=== PATIENT | female | born 1990 | race Caucasian/White ===

== ENCOUNTER → 2016-12-13 | Outpatient (CLI) | payer OTHER ==
--- NOTE | 2016-12-14 17:02 | US ---
EXAM DATE: 12/13/16 PATIENT'S AGE: 26 Patient: HOLLY MEZA Facility: [place], [place] Site Site : 1989 Study: US OB Pelvis [id number] 2:41:04 PM Ordering Physician: abraham villatoro Final Report: INDICATION: Twin 2nd trimester anatomical survey. TECHNIQUE: Ultrasound OB pelvis transabdominal. Real-time salter-scale imaging of the fetus was performed as well as color Doppler and spectral Doppler analysis of the umbilical artery. COMPARISON: 10/05/2016. FINDINGS: Sonographic imaging demonstrates a twin living intrauterine gestation. Fetus A: Fetus A demonstrates a regular cardiac rate of 140 beats per minute. Fetus has a cephalic orientation. The placenta lies anterior without evidence of placenta previa. Amniotic fluid volume appears normal with an CAMILA of 14.0 cm. The composite ultrasound gestational age is calculated at 20 weeks 0 days with an estimated sonographic due date of May 02, 2017. The weight is estimated at 322 grams, the 26th percentile. The following biometric measurements were obtained: Biparietal diameter: 4.7 Head circumference: 17.3 Abdominal circumference: 14.5 Femur length: 3.2 On anatomic survey, there is a normal appearance of the cerebral ventricles, cisterna magna and cerebellum. The nose, lips, and facial profile appear normal. The cervical, thoracic and lumbar spines are well visualized and appear normal. There is a normal four-chamber heart and the left and right ventricular outflow tracts appear normal. diaphragm, stomach, and bladder appear normal. There is mild prominence of the renal collecting systems measuring 4-5 mm. There is a normal three-vessel cord and cord insertion site. The four extremities appear normal. Fetus B: Fetus B demonstrates a regular cardiac rate of 140 beats per minute. Fetus has a cephalic orientation. The placenta lies posterior without evidence of placenta previa. Amniotic fluid volume appears normal with an CAMILA of 16.1 cm. The composite ultrasound gestational age is calculated at 19 weeks 5 days with an estimated sonographic due date of May 04, 2017. The weight is estimated at 311 grams, the 19th percentile. The following biometric measurements were obtained: Biparietal diameter: 4.6 Head circumference: 17.2 Abdominal circumference: 14.2 Femur length: 3.2 On anatomic survey, there is a normal appearance of the cerebral ventricles, cisterna magna and cerebellum. The nose, lips, and facial profile appear normal. The cervical, thoracic and lumbar spines are well visualized and appear normal. There is a normal four-chamber heart and the left and right ventricular outflow tracts appear normal. diaphragm, stomach, kidneys and bladder appear normal. There is a normal three-vessel cord and cord insertion site. The four extremities appear normal. IMPRESSION: 1.Twin viable intrauterine . 2.Mild prominence of the renal collecting systems in Fetus A. Otherwise no intrinsic abnormalities noted on anatomic survey. Dictated by Vikas Stevens MD @ Dec 14 2016 2:43PM (Electronic Signature) Report Signed by Proxy and Original Signed Document filed in the Medical Record. MTDD
== END ==
LOC: MW.US 09:28
PROVIDERS: ATTEND Advanced Practice Midwife
DX: O30.002 Twin pregnancy, unspecified number of placenta and unspecified number of amniotic sacs, second trimester (principal); Z3A.20 20 weeks gestation of pregnancy
CPT/HCPCS: 76805; 76805-26

== ENCOUNTER → 2017-02-09 | Outpatient (CLI) | payer OTHER | LOC: MW.CHOBGYN 08:10 | PROVIDERS: ATTEND Advanced Practice Midwife | DX: Z34.90 Encounter for supervision of normal pregnancy, unspecified, unspecified trimester (principal) | CPT/HCPCS: 36415; 82950; 85027; 86850 ==

== ENCOUNTER → 2017-02-15 | Outpatient (CLI) | payer OTHER | LOC: MW.CHOBGYN 09:45 | PROVIDERS: ATTEND Advanced Practice Midwife | DX: R73.02 Impaired glucose tolerance (oral) (principal) | CPT/HCPCS: 36415; 82951 ==

== ENCOUNTER 2017-03-24 22:09 | Observation (INO) | payer OTHER | END 2017-03-25 01:45 | disposition home or self-care (01) | LOC: MW.OBCHECK 22:09 → MW.OB 22:12 → MW.OBCHECK 23:17 → MW.OB 23:17 | PROVIDERS: ADMIT Obstetrics & Gynecology; ATTEND Advanced Practice Midwife | DX: O36.8130 Decreased fetal movements, third trimester, not applicable or unspecified (principal); Z3A.34 34 weeks gestation of pregnancy | CPT/HCPCS: 59025; G0378 ==

== ENCOUNTER 2017-04-16 09:43 | Inpatient (IN) | payer OTHER ==
--- NOTE | 2017-04-16 08:59 | PCM.LDHP ---
L&D History of Present Illness - General Date of Service: 04/16/17 Admit Problem/Dx: Patient Status Order with Admit Dx/Problem 04/16/17 08:50 Patient Status [ADT] Routine Admission Diagnosis/Problem Admission Diagnosis/Problem - planned Source of Information: Patient History Limitations: Reports: No Limitations - History of Present Illness Improves with: Reports: None Worsens with: Reports: None Associated Symptoms: Reports: N - Related Data Allergies/Adverse Reactions: Allergies Allergy/AdvReac Type Severity Reaction Status Date / Time cefaclor [From Ceclor] Allergy Rash Verified 01/12/15 16:06 Home Medications: Home Meds PNV95/Ferrous Fumarate/FA [ Multivitamins] 1 tab PO DAILY 01/12/15 [ History] Past Medical History HEENT History: Reports: Other (See Below) Other HEENT History: wears contacts/glasses Gastrointestinal History: Reports: GERD Genitourinary History: Reports: 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: Musculoskeletal History: Reports: Other (See Below) Other Musculoskeletal History: scoliosis Psychiatric History: Reports: Anxiety Hematologic History: 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 Other Hematologic History: idiopathic thrombocytopenia as a child Dermatologic History: Reports: Psoriasis - Past Surgical History Head Surgeries/Procedures: Reports: None Female Surgical History: Reports: Section Social & Family History - Tobacco Use Smoking Status *Q: Former Smoker Years of Tobacco use: 5 Used Tobacco, but Quit: No Month Tobacco Last Used: january Second Hand Smoke Exposure: Yes - Alcohol Use Days Per Week of Alcohol Use: 0 Number of Drinks Per Day: 1 Total Drinks Per Week: 0 - Recreational Drug Use Recreational Drug Use: No H&P Review of Systems - Review of Systems: Review Of Systems: See Below General: Reports: No Symptoms HEENT: Reports: No Symptoms Pulmonary: Reports: No Symptoms Cardiovascular: Reports: No Symptoms Gastrointestinal: Reports: No Symptoms Genitourinary: Reports: No Symptoms Musculoskeletal: Reports: No Symptoms Skin: Reports: No Symptoms Psychiatric: Reports: No Symptoms Neurological: Reports: No Symptoms Hematologic/Lymphatic: Reports: No Symptoms Immunologic: Reports: No Symptoms L&D Exam - Exam Exam: See Below - Vital Signs Weight: 92.533 kg - OB Specific Fundal Height In cm: 45 Contraction Intensity: Mild Problem List Initiated/Reviewed/Updated: Yes Orders Last 24hrs: Active Orders 24 hr Category Date Time Status Patient Status [ADT] Routine ADT 04/16/17 08:50 Ordered Non Stress Test [RC] PER UNIT ROUTINE Care 04/16/17 08:50 Ordered Procedure Site Prep Instruct [RC] ASDIRECTED Care 04/16/17 08:50 Ordered Up ad Ethel [RC] ASDIRECTED Care 04/16/17 08:50 Ordered Verify Patient Consent Obtain [RC] ASDIRECTED Care 04/16/17 07:03 Active Verify Patient Consent Obtain [RC] ASDIRECTED Care 04/16/17 08:50 Ordered Vital Signs [RC] PER UNIT ROUTINE Care 04/16/17 08:50 Ordered Nothing per Oral Now Diet [DIET] Diet 04/16/17 Breakfast Active CBC W/O DIFF,HEMOGRAM [HEME] Routine Lab 04/16/17 08:50 Ordered CBC WITH AUTO DIFF [HEME] Routine Lab 04/16/17 10:00 Ordered TYPE AND SCREEN [BBK] Routine Lab 04/16/17 08:50 Ordered TYPE AND SCREEN [BBK] Routine Lab 04/16/17 10:00 Ordered Citric Acid/Sodium Citrate [Bicitra Solution] Med 04/16/17 09:00 Ordered 30 ml PO .ONCE Lactated Ringers [Ringers, Lactated] 1,000 ml Med 04/16/17 09:00 Ordered IV .BOLUS Lactated Ringers [Ringers, Lactated] 1,000 ml Med 04/16/17 07:15 Active IV ASDIRECTED Sodium Chloride 0.9% [Saline Flush] Med 04/16/17 07:03 Active 10 ml FLUSH ASDIRECTED PRN Sodium Chloride 0.9% [Saline Flush] Med 04/16/17 08:50 Ordered 10 ml FLUSH ASDIRECTED PRN Sodium Chloride 0.9% [Saline Flush] Med 04/16/17 07:03 Active 2.5 ml FLUSH ASDIRECTED PRN Sodium Chloride 0.9% [Saline Flush] Med 04/16/17 08:50 Ordered 2.5 ml FLUSH ASDIRECTED PRN ceFAZolin [Ancef] 2 gm Med 04/16/17 08:50 Ordered Premix Bag 1 bag IV ONETIME Medication Administration Instruction [OM.PC] Routine Oth 04/16/17 07:03 Ordered Peripheral IV Insertion Adult [OM.PC] Routine Oth 04/16/17 07:03 Ordered Peripheral IV Insertion Adult [OM.PC] Routine Oth 04/16/17 08:50 Ordered Schedule Procedure [COMM] Per Unit Routine Oth 04/16/17 08:50 Ordered Resuscitation Status Routine Resus Stat 04/16/17 08:50 Ordered Medication Orders Citric Acid/Sodium Citrate (Bicitra Solution) 30 ml PO .ONCE MONA Lactated Ringer's (Ringers, Lactated) 1,000 mls @ 125 mls/hr IV ASDIRECTED MONA Lactated Ringer's (Ringers, Lactated) 1,000 mls @ 500 mls/hr IV .BOLUS MONA Cefazolin Sodium/Dextrose 2 gm (/ Premix) 50 mls @ 100 mls/hr IV ONETIME ONE Stop: 04/16/17 09:19 Sodium Chloride (Saline Flush) 10 ml FLUSH ASDIRECTED PRN PRN Reason: Keep Vein Open Sodium Chloride (Saline Flush) 2.5 ml FLUSH ASDIRECTED PRN PRN Reason: Keep Vein Open Sodium Chloride (Saline Flush) 10 ml FLUSH ASDIRECTED PRN PRN Reason: Keep Vein Open Sodium Chloride (Saline Flush) 2.5 ml FLUSH ASDIRECTED PRN PRN Reason: Keep Vein Open Assessment/Plan Comment:: Intrauterine 38 weeks +1 day it is twin she had a previous section 2 she is admitted for elective repeat section
[~2017-04-16 09:43] MED LIST: Citric Acid/Sodium Citrate Solution 30 ML Cup PO SCH; Lactated Ringers 1,000 ML IV SCH; Sodium Chloride 0.9% 10 ML Syringe FLUSH PRN; Sodium Chloride 0.9% 2.5 ML Syringe FLUSH PRN; ceFAZolin 2 GM in Premix Bag 1 BAG IV ONE
--- NOTE | 2017-04-16 10:04 | PCM.PREANE ---
Preanesthetic Assessment - Anesthesia/Transfusion/Family Hx Anesthesia History: Prior Anesthesia Without Reaction Family History of Anesthesia Reaction: No Transfusion History: No Prior Transfusion(s) - Review of Systems General: No Symptoms Pulmonary: No Symptoms Cardiovascular: No Symptoms Gastrointestinal: No symptoms Neurological: No Symptoms Other: Reports: None - Physical Assessment NPO Status Date: 04/15/17 Height: 1.63 m Weight: 92.533 kg ASA Class: 2 Mental Status: Alert & Oriented x3 Airway Class: Mallampati = 2 Dentition: Reports: Normal Dentition ROM/Head Extension: Full Lungs: Clear to auscultation, Normal respiratory effort Cardiovascular: Regular Rate, Regular Rhythm - Allergies Allergies/Adverse Reactions: Allergies Allergy/AdvReac Type Severity Reaction Status Date / Time cefaclor [From Ceclor] Allergy Rash Verified 01/12/15 16:06 - Blood Blood Available: Yes - Anesthesia Plan Pre-Op Medication Ordered: Antacids - Acknowledgements Anesthesia Type Planned: Spinal Pt an Appropriate Candidate for the Planned Anesthesia: Yes Alternatives and Risks of Anesthesia Discussed w Pt/Guardian: Yes Pt/Guardian Understands and Agrees with Anesthesia Plan: Yes Additional Comments: Elective repeat c/section for twin . 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: Musculoskeletal History: Reports: Other (See Below) Other Musculoskeletal History: scoliosis Psychiatric History: Reports: Anxiety Hematologic History: 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 Other Hematologic History: idiopathic thrombocytopenia as a child Dermatologic History: Reports: Psoriasis - Past Surgical History Head Surgeries/Procedures: Reports: None Female Surgical History: Reports: Section - SUBSTANCE USE Smoking Status *Q: Former Smoker Tobacco Use Within Last Twelve Months: No Second Hand Smoke Exposure: Yes Days Per Week of Alcohol Use: 0 Number of Drinks Per Day: 1 Total Drinks Per Week: 0 Recreational Drug Use History: No - HOME MEDS Home Medications: Home Meds PNV95/Ferrous Fumarate/FA [ Multivitamins] 1 tab PO DAILY 01/12/15 [ History] - CURRENT (IN HOUSE) MEDS Current Meds: Current Medications Citric Acid/Sodium Citrate (Bicitra Solution) 30 ml PO .ONCE MONA Lactated Ringer's (Ringers, Lactated) 1,000 mls @ 125 mls/hr IV ASDIRECTED MONA Lactated Ringer's (Ringers, Lactated) 1,000 mls @ 500 mls/hr IV .BOLUS MONA Sodium Chloride (Saline Flush) 10 ml FLUSH ASDIRECTED PRN PRN Reason: Keep Vein Open Sodium Chloride (Saline Flush) 2.5 ml FLUSH ASDIRECTED PRN PRN Reason: Keep Vein Open Sodium Chloride (Saline Flush) 10 ml FLUSH ASDIRECTED PRN PRN Reason: Keep Vein Open Sodium Chloride (Saline Flush) 2.5 ml FLUSH ASDIRECTED PRN PRN Reason: Keep Vein Open Discontinued Medications Cefazolin Sodium/Dextrose 2 gm (/ Premix) 50 mls @ 100 mls/hr IV ONETIME ONE Stop: 04/16/17 09:19
[2017-04-16] MEDS: Lactated Ringers 1,000 ML IV SCH ×2 (10:25→11:08)
[2017-04-16] MEDS ORDERED: Octyl 2-Cyanoacrylate 1 Tube ONE (10:43)
[2017-04-16] MEDS ORDERED: Morphine PF 10 MG/10 ML SDV ONE (11:58)
[2017-04-16] MEDS ORDERED: Oxytocin/Lactated Ringers 30 UNIT/500 ML BAG ONE (12:03)
[2017-04-16] MEDS ORDERED: Nalbuphine 10 MG/1 ML Vial IVPUSH PRN (12:45)
[2017-04-16] MEDS ORDERED: Acetaminophen/oxyCODONE 325-5 MG Tab PO PRN ×2 (12:45→12:59)
[2017-04-16] MEDS ORDERED: Naloxone 0.4 MG/ML Syringe IVPUSH PRN (12:45)
[2017-04-16] MEDS ORDERED: fentaNYL 100 MCG/2 ML SDV IVPUSH PRN (12:45)
[2017-04-16] MEDS ORDERED: Ketorolac 30 MG/ML SDV ONE (12:56)
[2017-04-16] MEDS ORDERED: Ondansetron 4 MG/2 ML SDV ONE (12:58)
[2017-04-16] MEDS ORDERED: diphenhydrAMINE 50 MG/ML SDV IVPUSH PRN (12:59)
[2017-04-16] MEDS ORDERED: Ibuprofen 800 MG Tab PO PRN (12:59)
[2017-04-16] MEDS ORDERED: Lanolin 100% Cream 7 GM Tube TOP PRN (12:59)
[2017-04-16] MEDS ORDERED: Bisacodyl 10 MG Supp RECTAL PRN (12:59)
[2017-04-16] MEDS ORDERED: Ondansetron 4 MG/2 ML SDV IV PRN (12:59)
[2017-04-16] MEDS ORDERED: Lactated Ringers 1,000 ML IV SCH (13:00)
--- NOTE | 2017-04-16 13:04 | PCM.OPNOTE ---
- General Post-Op/Procedure Note Date of Surgery/Procedure: 04/16/17 Operative Procedure(s): Repeat C/Section Pre Op Diagnosis: Term twin previous C/Section. Post-Op Diagnosis: Same Anesthesia Technique: Combo spinal/epidural, Spinal Primary Surgeon: Gabriel Morin Gui Developer: Kiera Ahumada EBL in mLs: 650 Complications: None Condition: Good
--- NOTE | 2017-04-16 14:07 | PCM.POSTAN ---
POST ANESTHESIA ASSESSMENT - MENTAL STATUS Mental Status: alert, oriented - RESPIRATORY Respiratory Status: respiratory rate WNL, airway patent, O2 saturation stable - CARDIOVASCULAR CV Status: pulse rate WNL, blood pressure stable - GASTROINTESTINAL GI Status: no symptoms - POST OP HYDRATION Hydration Status: adequate & stable
[2017-04-16] MEDS: Ketorolac 30 MG/ML SDV IVPUSH SCH ×2 (14:24→18:41)
[2017-04-16] MEDS ORDERED: Furosemide 40 MG/4 ML VIAL IVPUSH ONE (16:30)
--- NOTE | 2017-04-16 20:06 | OR ---
SURGEON: Gabriel Morin MD DATE OF PROCEDURE: PREOPERATIVE DIAGNOSES: 1. Intrauterine 38 plus 1 weeks twin gestation. 2. Previous section x2. POSTOPERATIVE DIAGNOSES: 1. Intrauterine 38 plus 1 weeks twin gestation. 2. Previous section x2. OPERATION PERFORMED: Repeat low transverse section. PROCESSING SPECIALIST: Kiera Ahumada CNM. PUBLIC WELFARE DIRECTOR: Dr. Moise Nick. ANESTHESIOLOGISTS: Garima Gamez and Dr. Teran. ANESTHESIA: Spinal. ESTIMATED BLOOD LOSS: 650 mL. COMPLICATIONS: None. FINDINGS: Viable female twin . The first one was in the vertex position and the second one is in the breech position delivered without any problem. They cried immediately upon delivery. The score and weight is not available to me at this time. Normal uterus, tubes, and ovaries. INDICATION FOR SURGERY: This patient is 26. She had 2 previous section. She is twin at this time. She is admitted for elective repeat section. PROCEDURE IN DETAIL: The patient was brought to the OR, properly identified, and after adequate level of spinal anesthesia with a Soria catheter in the bladder, the patient prepped and draped in sterile fashion as usual. Low transverse Pfannenstiel skin incision through the old scar was done. The Kwabena's fascia, rectus fascia opened in direction of the incision. The 2 recti muscles were and the peritoneal cavity was entered. The bladder flap was raised in the usual manner pushing the bladder away from the lower uterine segment. Low transverse uterine incision was done and extended manually with hand and the first fetus was in vertex presentation, delivered and cried immediately, handed to the nurse resuscitator and Dr. Nick, and then the second twin was in a breech presentation, delivered in such way, and again it was female and cried immediately too. The placenta delivered spontaneous, complete, and intact, and then repair of the lower uterine segment done with 2-0 Vicryl continuous interlocking in 2 layers. Reperitonealization done with 3-0 Vicryl continuous, and then the peritoneal cavity evacuated completely from all blood and blood clot and closed with 3-0 Vicryl continuous. The rectus fascia was closed with #1 PDS double strand continuous and the Kwabena's fascia with 3-0 Vicryl continuous and skin was closed with 5-0 monofilamentous continuous and Dermabond. The patient tolerated the procedure well, went to recovery room in stable general condition. KIERA ALONSO /[id number]
[2017-04-16] MEDS: Docusate Sodium 100 MG Cap PO SCH (21:30)
[2017-04-17] MEDS: Ketorolac 30 MG/ML SDV IVPUSH SCH ×3 (01:01→13:39)
--- NOTE | 2017-04-17 06:54 | PCM48HPAN ---
Post Anesthesia Note - EVALUATION WITHIN 48HRS OF ANESTHETIC Vital Signs in Normal Range: Yes Patient Participated in Evaluation: Yes Respiratory Function Stable: Yes Airway Patent: Yes Cardiovascular Function Stable: Yes Hydration Status Stable: Yes Pain Control Satisfactory: Yes Nausea and Vomiting Control Satisfactory: Yes Mental Status Recovered: Yes
[2017-04-17] MEDS: Docusate Sodium 100 MG Cap PO SCH ×2 (09:03→21:25)
--- NOTE | 2017-04-17 09:30 | PCM.PNPP ---
- General Info Date of Service: 04/17/17 Functional Status: Reports: pain controlled - Review of Systems General: Reports: No Symptoms HEENT: Reports: no symptoms Pulmonary: Reports: no symptoms Cardiovascular: Reports: No Symptoms Gastrointestinal: Reports: No symptoms Genitourinary: Reports: no symptoms Musculoskeletal: Reports: no symptoms Skin: Reports: no symptoms Neurological: Reports: No Symptoms Psychiatric: Reports: no symptoms - General Info Date of Service: 04/17/17 - Patient Data Vital Signs - most recent: Last Vital Signs Temp 36.4 C 04/17/17 05:00 Pulse 70 04/17/17 07:00 Resp 14 04/17/17 07:00 BP 106/59 L 04/17/17 05:00 Pulse Ox 96 04/17/17 07:00 Weight - most recent: 96.162 kg I&O - last 24 hours: Intake & Output 04/16/17 04/17/17 04/17/17 22:59 06:59 14:59 Intake Total 3920 250 Output Total 630 350 Balance 3290 -100 Lab Results - last 24 hrs: Laboratory Results - last 24 hr 04/16/17 04/16/17 04/17/17 Range/Units 10:24 10:24 05:21 WBC 7.41 (4.0-11.0) K/uL RBC 3.78 L (4.30-5.90) M/uL Hgb 10.6 L 9.0 L (12.0-16.0) g/dL Hct 32.8 L 27.7 L (36.0-46.0) % MCV 86.8 (80.0-98.0) fL MCH 28.0 (27.0-32.0) pg MCHC 32.3 (31.0-37.0) g/dL RDW Std Deviation 45.2 (28.0-62.0) fl RDW Coeff of Liz 14 (11.0-15.0) % Plt Count 182 (150-400) K/uL MPV 11.50 (7.40-12.00) fL Nucleated RBC % 0.0 /100WBC Nucleated RBCs # 0 K/uL Blood Type A POSITIVE Antibody Screen NEGATIVE Med Orders - Current: Current Medications Bisacodyl (Dulcolax) 10 mg RECTAL .ONCE PRN PRN Reason: Constipation Citric Acid/Sodium Citrate (Bicitra Solution) 30 ml PO .ONCE [facility] Last Admin: 04/16/17 11:41 Dose: 30 ml Diphenhydramine HCl (Benadryl) 25 mg IVPUSH Q6H PRN PRN Reason: Itching or Nausea Docusate Sodium (Colace) 100 mg PO BID [facility] Last Admin: 04/17/17 09:03 Dose: 100 mg Emollient Ointment (Lansinoh Hpa) 0 gm TOP ASDIRECTED PRN PRN Reason: Sore Nipples Last Admin: 04/17/17 09:03 Dose: 1 tube Fentanyl (Sublimaze) 50 mcg IVPUSH Q5M PRN PRN Reason: Pain (severe 7-10) Stop: 04/17/17 12:46 Lactated Ringer's (Ringers, Lactated) 1,000 mls @ 125 mls/hr IV ASDIRECTED [facility] Lactated Ringer's (Ringers, Lactated) 1,000 mls @ 500 mls/hr IV .BOLUS [facility] Last Admin: 04/16/17 11:08 Dose: 500 mls/hr Lactated Ringer's (Ringers, Lactated) 1,000 mls @ 125 mls/hr IV ASDIRECTED [facility] Last Admin: 04/16/17 16:30 Dose: 125 mls/hr Ibuprofen (Motrin) 800 mg PO Q8H PRN PRN Reason: mild pain or fever Ketorolac Tromethamine (Toradol) 30 mg IVPUSH Q6H [facility] Stop: 04/17/17 13:01 Last Admin: 04/17/17 07:30 Dose: 30 mg Nalbuphine HCl (Nubain) 5 mg IVPUSH Q3H PRN PRN Reason: Pruritis Stop: 04/17/17 12:46 Last Admin: 04/16/17 14:21 Dose: 5 mg Naloxone HCl (Narcan) 0.1 mg IVPUSH ONETIME PRN PRN Reason: Respiratory Depression Stop: 04/17/17 12:47 Ondansetron HCl (Zofran) 4 mg IV Q4H PRN PRN Reason: Nausea/Vomiting Last Admin: 04/16/17 18:06 Dose: 4 mg Oxycodone/Acetaminophen (Percocet 325-5 Mg) 2 tab PO ONETIME PRN PRN Reason: Pain (moderate 4-6) Oxycodone/Acetaminophen (Percocet 325-5 Mg) 1 tab PO Q4H PRN PRN Reason: Pain (moderate 4-6) Oxycodone/Acetaminophen (Percocet 325-5 Mg) 2 tab PO Q4H PRN PRN Reason: Pain (moderate 4-6) Sodium Chloride (Saline Flush) 10 ml FLUSH ASDIRECTED PRN PRN Reason: Keep Vein Open Sodium Chloride (Saline Flush) 2.5 ml FLUSH ASDIRECTED PRN PRN Reason: Keep Vein Open Sodium Chloride (Saline Flush) 10 ml FLUSH ASDIRECTED PRN PRN Reason: Keep Vein Open Sodium Chloride (Saline Flush) 2.5 ml FLUSH ASDIRECTED PRN PRN Reason: Keep Vein Open Discontinued Medications Furosemide (Lasix) 20 mg IVPUSH NOW ONE Stop: 04/16/17 16:31 Last Admin: 04/16/17 16:38 Dose: 20 mg Cefazolin Sodium/Dextrose 2 gm (/ Premix) 50 mls @ 100 mls/hr IV ONETIME ONE Stop: 04/16/17 09:19 Last Admin: 04/16/17 16:44 Dose: Not Given Oxytocin/Lactated Ringer's (Pitocin In Lr 30 Units/500 Ml) Confirm Administered Dose 30 unit in 500 mls @ as directed .ROUTE .STK-MED ONE Stop: 04/16/17 12:04 Ketorolac Tromethamine (Toradol) Confirm Administered Dose 30 mg .ROUTE .STK- MED ONE Stop: 04/16/17 12:57 Morphine Sulfate (Duramorph Pf) Confirm Administered Dose 10 mg .ROUTE .STK-MED ONE Stop: 04/16/17 11:59 Octyl Cyanoacrylate (Dermabond Advance) Confirm Administered Dose 1 applic .ROUTE .STK-MED ONE Stop: 04/16/17 10:44 Ondansetron HCl (Zofran) Confirm Administered Dose 4 mg .ROUTE .STK-MED ONE Stop: 04/16/17 12:59 - Interaction Disposition, : [place] in Room with Family Interaction: Holding Infant Feeding: Attempted ; Nursed Fair/Poor Support Person: , Mother - Recovery Exam Fundal Tone: Firm Fundal Level: At Umbilicus Fundal Placement: Midline Lochia Amount: Scant Lochia Color: Rubra/Red Perineum Description: Intact, Minimal Bruising/Swelling Episiotomy/Laceration: None Bladder Status: Nonpalpable, Indwelling Catheter in Place Urinary Elimination: Indwelling Catheter - Exam General: alert, oriented HEENT: Pupils equal Neck: supple Lungs: Clear to auscultation, Normal respiratory effort Cardiovascular: Regular Rate, Regular Rhythm Abdomen: bowel sounds present, soft, no tenderness, no distension Extremities: no edema Skin: warm, dry, intact Wound/Incisions: healing well Neurological: no new focal deficit Psy/Mental Status: alert, normal affect, normal mood - Problem List Review Problem List Initiated/Reviewed/Updated: Yes - My Orders Last 24 Hours: My Active Orders 04/16/17 08:50 Up ad Ethel [RC] ASDIRECTED Vital Signs [RC] PER UNIT ROUTINE Sodium Chloride 0.9% [Saline Flush] 10 ml FLUSH ASDIRECTED PRN Sodium Chloride 0.9% [Saline Flush] 2.5 ml FLUSH ASDIRECTED PRN Peripheral IV Insertion Adult [OM.PC] Routine Schedule Procedure [COMM] Per Unit Routine Resuscitation Status Routine 04/16/17 09:00 Citric Acid/Sodium Citrate [Bicitra Solution] 30 ml PO .ONCE Lactated Ringers [Ringers, Lactated] 1,000 ml IV .BOLUS 04/16/17 12:59 Patient Status [ADT] Routine Ambulate [RC] PER UNIT ROUTINE Communication Order [RC] PER UNIT ROUTINE Communication Order [RC] PER UNIT ROUTINE Communication Order [RC] Per Unit Routine May Shower [RC] ASDIRECTED RT Incentive Spirometry [RC] Q2HWA Vital Signs [RC] PER UNIT ROUTINE Acetaminophen/oxyCODONE [Percocet 325-5 MG] 1 tab PO Q4H PRN Acetaminophen/oxyCODONE [Percocet 325-5 MG] 2 tab PO Q4H PRN Bisacodyl [Dulcolax] 10 mg RECTAL .ONCE PRN Ibuprofen [Motrin] 800 mg PO Q8H PRN Lanolin [Lansinoh HPA] See Dose Instructions TOP ASDIRECTED PRN Ondansetron [Zofran] 4 mg IV Q4H PRN diphenhydrAMINE [Benadryl] 25 mg IVPUSH Q6H PRN Assess Lochia [WOMSER] Per Unit Routine Assess Uterine Involution [WOMSER] Per Unit Routine Breast Pump [WOMSER] Per Unit Routine Peripheral IV Discontinue [OM.PC] Routine Sequential Compression Device [OM.PC] Per Unit Routine 04/16/17 13:00 Antiembolic Devices [RC] PER UNIT ROUTINE Ketorolac [Toradol] 30 mg IVPUSH Q6H Lactated Ringers [Ringers, Lactated] 1,000 ml IV ASDIRECTED 04/16/17 21:00 Docusate Sodium [Colace] 100 mg PO BID 04/17/17 Breakfast Regular Diet [DIET] - Assessment Assessment:: status post section postoperative day #1 patient doing well on regular diet ambulating. Plan is to have a regular postoperative and care - Plan Plan:: Intrauterine 38 weeks +1 day it is twin she had a previous section 2 she is admitted for elective repeat section
[2017-04-17] MEDS: Acetaminophen/oxyCODONE 325-5 MG Tab PO PRN (13:40)
[2017-04-18] MEDS: Acetaminophen/oxyCODONE 325-5 MG Tab PO PRN
[2017-04-18] MEDS: Docusate Sodium 100 MG Cap PO SCH ×2 (07:52→09:15)
--- NOTE | 2017-04-18 08:07 | PCM.DCSUM1 ---
Discharge Summary - Hospital Course Free Text/Narrative:: Discharge home with the babies. Follow up 10 days for incision check and 6 weeks for post visit. Come sooner if needed. - Discharge Data Discharge Date: 04/18/17 Discharge Disposition: Home, Self-Care 01 Condition: Good - Patient Summary/Data Operative Procedure(s) Performed: Repeat C/Section - Patient Instructions Diet: Usual Diet as Tolerated Activity: As Tolerated, Rest and Relax Today Driving: Do Not Drive Showering/Bathing: May Shower Wound/Incision Care: Keep Operative Site/Wound Site Clean and Dry Notify Provider of: Fever, Increased Pain, Swelling and Redness, Drainage, Nausea and/or Vomiting Other/Special Instructions: Discharge home with the babies. Follow up 10 days for incision check and 6 weeks for post visit. Come sooner if needed. - Discharge Plan Home Medications: Home Meds PNV95/Ferrous Fumarate/FA [ Multivitamins] 1 tab PO DAILY 01/12/15 [ History] Referrals: [facility] [Outside] Kiera Ahumada CNM [Mid-] - (1 week- April 25 @ 1:30pm w/ Kiera Ahumada 6 week - May 25 @ 1:30pm w/ Kiera Ahumada ) - General Info Date of Service: 04/18/17 Admission Dx/Problem (Free Text: Patient Status Order with Admit Dx/Problem 04/16/17 08:50 Patient Status [ADT] Routine Admission Diagnosis/Problem Admission Diagnosis/Problem - planned Functional Status: Reports: pain controlled, tolerating diet, ambulating, urinating - Review of Systems General: Reports: No Symptoms HEENT: Reports: no symptoms Pulmonary: Reports: no symptoms Cardiovascular: Reports: No Symptoms Gastrointestinal: Reports: No symptoms Genitourinary: Reports: no symptoms Musculoskeletal: Reports: no symptoms Skin: Reports: no symptoms Neurological: Reports: No Symptoms Psychiatric: Reports: no symptoms - Patient Data Vitals - Most Recent: Last Vital Signs Temp 36.9 C 04/18/17 05:25 Pulse 68 04/18/17 05:25 Resp 17 04/18/17 05:25 BP 119/64 04/18/17 05:25 Pulse Ox 98 04/18/17 05:25 Weight - Most Recent: 96.162 kg Med Orders - Current: Current Medications Bisacodyl (Dulcolax) 10 mg RECTAL .ONCE PRN PRN Reason: Constipation Citric Acid/Sodium Citrate (Bicitra Solution) 30 ml PO .ONCE MONA Last Admin: 04/16/17 11:41 Dose: 30 ml Diphenhydramine HCl (Benadryl) 25 mg IVPUSH Q6H PRN PRN Reason: Itching or Nausea Docusate Sodium (Colace) 100 mg PO BID [facility] Last Admin: 04/18/17 07:52 Dose: 100 mg Emollient Ointment (Lansinoh Hpa) 0 gm TOP ASDIRECTED PRN PRN Reason: Sore Nipples Last Admin: 04/17/17 09:03 Dose: 1 tube Lactated Ringer's (Ringers, Lactated) 1,000 mls @ 125 mls/hr IV ASDIRECTED [facility] Lactated Ringer's (Ringers, Lactated) 1,000 mls @ 500 mls/hr IV .BOLUS [facility] Last Admin: 04/16/17 11:08 Dose: 500 mls/hr Lactated Ringer's (Ringers, Lactated) 1,000 mls @ 125 mls/hr IV ASDIRECTED [facility] Last Admin: 04/16/17 16:30 Dose: 125 mls/hr Ibuprofen (Motrin) 800 mg PO Q8H PRN PRN Reason: mild pain or fever Last Admin: 04/18/17 07:51 Dose: 800 mg Ondansetron HCl (Zofran) 4 mg IV Q4H PRN PRN Reason: Nausea/Vomiting Last Admin: 04/16/17 18:06 Dose: 4 mg Oxycodone/Acetaminophen (Percocet 325-5 Mg) 2 tab PO ONETIME PRN PRN Reason: Pain (moderate 4-6) Oxycodone/Acetaminophen (Percocet 325-5 Mg) 1 tab PO Q4H PRN PRN Reason: Pain (moderate 4-6) Last Admin: 04/18/17 00:00 Dose: 1 tab Oxycodone/Acetaminophen (Percocet 325-5 Mg) 2 tab PO Q4H PRN PRN Reason: Pain (moderate 4-6) Sodium Chloride (Saline Flush) 10 ml FLUSH ASDIRECTED PRN PRN Reason: Keep Vein Open Sodium Chloride (Saline Flush) 2.5 ml FLUSH ASDIRECTED PRN PRN Reason: Keep Vein Open Sodium Chloride (Saline Flush) 10 ml FLUSH ASDIRECTED PRN PRN Reason: Keep Vein Open Sodium Chloride (Saline Flush) 2.5 ml FLUSH ASDIRECTED PRN PRN Reason: Keep Vein Open Discontinued Medications Fentanyl (Sublimaze) 50 mcg IVPUSH Q5M PRN PRN Reason: Pain (severe 7-10) Stop: 04/17/17 12:46 Furosemide (Lasix) 20 mg IVPUSH NOW ONE Stop: 04/16/17 16:31 Last Admin: 04/16/17 16:38 Dose: 20 mg Cefazolin Sodium/Dextrose 2 gm (/ Premix) 50 mls @ 100 mls/hr IV ONETIME ONE Stop: 04/16/17 09:19 Last Admin: 04/16/17 16:44 Dose: Not Given Oxytocin/Lactated Ringer's (Pitocin In Lr 30 Units/500 Ml) Confirm Administered Dose 30 unit in 500 mls @ as directed .ROUTE .STK-MED ONE Stop: 04/16/17 12:04 Ketorolac Tromethamine (Toradol) Confirm Administered Dose 30 mg .ROUTE .STK- MED ONE Stop: 04/16/17 12:57 Ketorolac Tromethamine (Toradol) 30 mg IVPUSH Q6H MONA Stop: 04/17/17 13:01 Last Admin: 04/17/17 13:39 Dose: 30 mg Morphine Sulfate (Duramorph Pf) Confirm Administered Dose 10 mg .ROUTE .STK-MED ONE Stop: 04/16/17 11:59 Nalbuphine HCl (Nubain) 5 mg IVPUSH Q3H PRN PRN Reason: Pruritis Stop: 04/17/17 12:46 Last Admin: 04/16/17 14:21 Dose: 5 mg Naloxone HCl (Narcan) 0.1 mg IVPUSH ONETIME PRN PRN Reason: Respiratory Depression Stop: 04/17/17 12:47 Octyl Cyanoacrylate (Dermabond Advance) Confirm Administered Dose 1 applic .ROUTE .STK-MED ONE Stop: 04/16/17 10:44 Ondansetron HCl (Zofran) Confirm Administered Dose 4 mg .ROUTE .STK-MED ONE Stop: 04/16/17 12:59 - Exam General: Reports: alert, oriented, cooperative, no acute distress Lungs: Reports: Normal respiratory effort Abdomen: Reports: soft, no tenderness, no distension (incision healing well, no drainage or erythema.) (Female) Exam: Vaginal Bleeding Rectal (Female) Exam: Deferred Back Exam: Reports: Full Range of Motion Extremities: Reports: no edema, normal pulses, no tenderness/swelling, no calf tenderness Skin: Reports: warm, dry, intact Wound/Incisions: Reports: healing well, no drainage Neurological: Reports: no new focal deficit, normal speech, normal tone Psy/Mental Status: Reports: alert, normal affect, normal mood *Q Meaningful Use (DIS) - VTE *Q VTE Criteria *Q: - Stroke *Q Stroke Criteria *Q: - AMI *Q AMI Criteria *Q:
[2017-04-18 09:13] VITALS: BP 125/78
== END 2017-04-18 15:30 | disposition home or self-care (01) | DRG 766 ==
LOC: MW.OB 09:43
PROVIDERS: ADMIT Obstetrics & Gynecology; ATTEND Obstetrics & Gynecology
PROC: 10D00Z1 Extraction of Products of Conception, Low, Open Approach (ICD-10-PCS; principal; 2017-04-16)
DX: O34.211 Maternal care for low transverse scar from previous cesarean delivery (principal); Z3A.38 38 weeks gestation of pregnancy; Z37.2 Twins, both liveborn
CPT/HCPCS: 01961; 36415; 59025; 85014; 85018; 85027; 86850; 86900; 86901; A9270-GY; J0690; J1885; J1940; J2270; J2300; J2405; J7120

== ENCOUNTER 2017-04-19 23:25 | Observation (INO) | payer OTHER ==
[2017-04-20 00:25] LABS: CHLORIDE,CL 110 mmol/L (98-110); SODIUM,NA 139 mmol/L (136-146)
[2017-04-20] MEDS ORDERED: Furosemide 20 MG/2 ML VIAL IVPUSH ONE (00:36)
--- NOTE | 2017-04-20 00:39 | EDM.PDOC ---
ED HPI GENERAL MEDICAL PROBLEM - General Chief Complaint: Respiratory Problem Stated Complaint: TROUBLE BREATHING Time Seen by Provider: 04/20/17 00:23 - History of Present Illness INITIAL COMMENTS - FREE TEXT/NARRATIVE: HISTORY AND PHYSICAL: History of present illness: Patient is 26-year-old white female 3 days status post presents with a concern of shortness of breath patient denies chest pain she does report exertional dyspnea she denies fever chills nausea vomiting or other concern Review of systems: As per history of present illness and below otherwise all systems reviewed and negative. Past medical history: As per history of present illness and as reviewed below otherwise noncontributory. Surgical history: As per history of present illness and as reviewed below otherwise noncontributory. Social history: No reported history of drug or alcohol abuse. Family history: As per history of present illness and as reviewed below otherwise noncontributory. Physical exam: HEENT: Atraumatic, normocephalic, pupils reactive, negative for conjunctival pallor or scleral icterus, mucous membranes moist, throat clear, neck supple, nontender, trachea midline. Lungs: Clear to auscultation, breath sounds equal bilaterally, chest nontender. Heart: S1S2, regular, negative for clicks, rubs, or JVD. Abdomen: Soft, nondistended, no localized tenderness no rebound no guarding. Negative for masses or hepatosplenomegaly. Negative for costovertebral tenderness. Pelvis: Stable nontender. Genitourinary: Deferred. Rectal: Deferred. Extremities: Atraumatic, negative for cords or calf pain. Neurovascular unremarkable. Neuro: Awake, alert, oriented. Cranial nerves II through XII unremarkable. Cerebellum unremarkable. Motor and sensory unremarkable throughout. Exam nonfocal. Diagnostics: CBC CMP BNP CTA chest Therapeutics: IV O2 monitor Lasix 20 mg IV Impression: #1 dyspnea #2 rule out cardiomyopathy Definitive disposition and diagnosis as appropriate pending reevaluation and review of above. surgical site Pain Score (Numeric/FACES): 5 - Related Data Allergies Allergy/AdvReac Type Severity Reaction Status Date / Time banana Allergy Swelling Verified 04/19/17 23:31 cefaclor [From Ceclor] Allergy Rash Verified 04/19/17 23:31 Home Meds: Home Meds PNV95/Ferrous Fumarate/FA [ Multivitamins] 1 tab PO DAILY 01/12/15 [ History] Acetaminophen/Codeine [Take Home: Acetaminophen/Codeine, 2 Tab Pack] 1 tab PO TID 04/19/17 [History] Past Medical History HEENT History: Reports: Other (See Below) Other HEENT History: wears contacts/glasses Cardiovascular History: Reports: None Respiratory History: Reports: None Gastrointestinal History: Reports: GERD Genitourinary History: Reports: None 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: Musculoskeletal History: Reports: Other (See Below) Other Musculoskeletal History: scoliosis Neurological History: Reports: None Psychiatric History: Reports: Anxiety Endocrine/Metabolic History: Reports: None Hematologic History: 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 Other Hematologic History: idiopathic thrombocytopenia as a child Immunologic History: Reports: None Oncologic (Cancer) History: Reports: None Dermatologic History: Reports: Psoriasis - Infectious Disease History Infectious Disease History: Reports: Chicken Pox - Past Surgical History Head Surgeries/Procedures: Reports: None Female Surgical History: Reports: Section Social & Family History - Family History Family Medical History: Noncontributory - Tobacco Use Smoking Status *Q: Never Smoker Years of Tobacco use: 5 Used Tobacco, but Quit: No Month Tobacco Last Used: january Second Hand Smoke Exposure: No - Caffeine Use Caffeine Use: Reports: Coffee, Soda - Alcohol Use Days Per Week of Alcohol Use: 0 Number of Drinks Per Day: 1 Total Drinks Per Week: 0 - Recreational Drug Use Recreational Drug Use: No ED ROS GENERAL - Review of Systems Review Of Systems: See Below ED EXAM, GENERAL - Physical Exam Exam: See Below (See dictation) Course - Vital Signs Last Recorded V/S: Last Vital Signs Temp 36.7 C 04/19/17 23:31 Pulse 66 04/20/17 00:21 Resp 22 H 04/20/17 00:21 BP 129/88 04/20/17 00:21 Pulse Ox 98 04/20/17 00:21 - Orders/Labs/Meds Orders: Active Orders 24 hr Category Date Time Status EKG 12 Lead [EKG Documentation Completion] [RC] STAT Care 04/19/17 23:38 Active Chest PE [Ang Chest] [CT] Stat Exams 04/19/17 23:39 Ordered Labs: Laboratory Tests 04/19/17 04/19/17 04/19/17 Range/Units 23:45 23:45 23:45 WBC 5.33 (4.0-11.0) K/uL RBC 3.07 L (4.30-5.90) M/uL Hgb 8.7 L (12.0-16.0) g/dL Hct 27.4 L (36.0-46.0) % MCV 89.3 (80.0-98.0) fL MCH 28.3 (27.0-32.0) pg MCHC 31.8 (31.0-37.0) g/dL RDW Std Deviation 47.3 (28.0-62.0) fl RDW Coeff of Liz 15 (11.0-15.0) % Plt Count 181 (150-400) K/uL MPV 11.00 (7.40-12.00) fL Neut % (Auto) 51.9 (48.0-80.0) % Lymph % (Auto) 38.1 (16.0-40.0) % [place] % (Auto) 7.3 (0.0-15.0) % Eos % (Auto) 2.3 (0.0-7.0) % Baso % (Auto) 0.4 (0.0-1.5) % Neut # (Auto) 2.8 (1.4-5.7) K/uL Lymph # (Auto) 2.0 (0.6-2.4) K/uL [place] # (Auto) 0.4 (0.0-0.8) K/uL Eos # (Auto) 0.1 (0.0-0.7) K/uL Baso # (Auto) 0.0 (0.0-0.1) K/uL Nucleated RBC % 0.0 /100WBC Nucleated RBCs # 0 K/uL Sodium 139 (136-146) mmol/L Potassium 4.0 (3.5-5.1) mmol/L Chloride 110 (98-110) mmol/L Carbon Dioxide 25 (21-31) mmol/L BUN 9 (6.0-23.0) mg/dL Creatinine 0.8 (0.6-1.5) mg/dL Est Cr Clr Drug Dosing 91.21 mL/min Estimated GFR (MDRD) > 60.0 ml/min Glucose 76 (60-110) mg/dL Calcium 8.0 L (8.8-10.8) mg/dL Total Bilirubin 0.4 (0.1-1.5) mg/dL AST 57 H (5-40) IU/L ALT 45 (8-54) IU/L Alkaline Phosphatase 118 (40-150) B-Natriuretic Peptide 354 H (<100) PG/ML Total Protein 5.4 L (6.0-8.0) g/dL Albumin 2.7 L (3.5-5.0) g/dL Globulin 2.7 (2.0-3.5) g/dL Albumin/Globulin Ratio 1.0 L (1.3-2.8) Departure - Departure Time of Disposition: 00:37 Disposition: Refer to Observation Condition: Good Clinical Impression: Dyspnea - Discharge Information Forms: ED Department Discharge - My Orders Last 24 Hours: My Active Orders 04/19/17 23:38 EKG 12 Lead [EKG Documentation Completion] [RC] STAT 04/19/17 23:39 Chest PE [Ang Chest] [CT] Stat - Assessment/Plan Last 24 Hours: My Active Orders 04/19/17 23:38 EKG 12 Lead [EKG Documentation Completion] [RC] STAT 04/19/17 23:39 Chest PE [Ang Chest] [CT] Stat
[2017-04-20] MEDS ORDERED: Furosemide 40 MG/4 ML VIAL ONE (00:42)
[2017-04-20] MEDS ORDERED: Iopamidol 755 MG/ML 50 ML Bottle IV ONE (00:59)
[2017-04-20] MEDS ORDERED: Acetaminophen 500 MG Tab PO PRN (02:33)
[2017-04-20] MEDS: Acetaminophen/oxyCODONE 325-5 MG Tab PO PRN ×2 (02:59→12:52)
[2017-04-20 06:15] LABS: CHLORIDE,CL 110 mmol/L (98-110); SODIUM,NA 140 mmol/L (136-146)
[2017-04-20] MEDS ORDERED: Prenatal Multivitamin and Multimineral with Iron Tab PO SCH (09:00)
--- NOTE | 2017-04-20 10:53 | PCM.HP ---
H&P History of Present Illness - General Date of Service: 04/20/17 Admit Problem/Dx: Admission Diagnosis/Problem Admission Diagnosis/Problem Dyspnea on exertion Source of Information: Patient, Family, Provider - History of Present Illness Initial Comments - Free Text/Narative: She was seen this am for progressive dyspnea since delivering twins by vaginal delivery four days ago. minimal cough noted marked CUMMINS. SHe had a repeat C section. She had no history of PIH with this . surgical site Pain Score (Numeric/FACES): 6 - Related Data Allergies/Adverse Reactions: Allergies Allergy/AdvReac Type Severity Reaction Status Date / Time banana Allergy Swelling Verified 04/19/17 23:31 cefaclor [From Ceclor] Allergy Rash Verified 04/19/17 23:31 Home Medications: Home Meds PNV95/Ferrous Fumarate/FA [ Multivitamins] 1 tab PO DAILY 01/12/15 [ History] Acetaminophen/Codeine [Take Home: Acetaminophen/Codeine, 2 Tab Pack] 1 tab PO TID 04/19/17 [History] oxyCODONE HCl/Acetaminophen [Percocet 5-325 mg Tablet] 1 - 2 tab PO Q4HR PRN [History] Past Medical History HEENT History: Reports: Other (See Below) Other HEENT History: wears contacts/glasses Cardiovascular History: Reports: None Respiratory History: Reports: None Gastrointestinal History: Reports: GERD Genitourinary History: Reports: None DIRECTOR GENERAL History: Reports: Musculoskeletal History: Reports: Other (See Below) Other Musculoskeletal History: scoliosis Neurological History: Reports: None Psychiatric History: Reports: Anxiety Endocrine/Metabolic History: Reports: None Hematologic History: 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 Other Hematologic History: idiopathic thrombocytopenia as a child Immunologic History: Reports: None Oncologic (Cancer) History: Reports: None Dermatologic History: Reports: Psoriasis - Infectious Disease History Infectious Disease History: Reports: Chicken Pox - Past Surgical History Head Surgeries/Procedures: Reports: None Female Surgical History: Reports: Section Social & Family History - Family History Family Medical History: Noncontributory - Tobacco Use Smoking Status *Q: Former Smoker Years of Tobacco use: 5 Used Tobacco, but Quit: No Month Tobacco Last Used: january Second Hand Smoke Exposure: No - Caffeine Use Caffeine Use: Reports: Coffee, Soda - Alcohol Use Days Per Week of Alcohol Use: 0 Number of Drinks Per Day: 1 Total Drinks Per Week: 0 - Recreational Drug Use Recreational Drug Use: No H&P Review of Systems - Review of Systems: Review Of Systems: See Below General: Denies: Fever, Chills HEENT: Denies: Dysphasia, Sore Throat Pulmonary: Reports: Shortness of Breath, Cough (minimal). Denies: Wheezing Cardiovascular: Denies: Chest Pain, Palpitations, Claudication Gastrointestinal: Denies: Black Stool, Bloody Stool, Hematemesis, Hematochezia Genitourinary: Denies: Dysuria Skin: Denies: Jaundice Psychiatric: Denies: Confusion Exam - Exam Exam: See Below - Vital Signs Vital Signs: Last Vital Signs Temp 96.9 F 04/20/17 08:00 Pulse 62 04/20/17 08:00 Resp 16 04/20/17 08:00 BP 132/85 04/20/17 08:00 Pulse Ox 97 04/20/17 08:00 Weight: 89.3 kg - Exam General: Alert, Oriented HEENT: Posterior Pharynx Clear Neck: Supple, Trachea Midline Lungs: Clear to Auscultation, Normal Respiratory Effort Cardiovascular: Regular Rate, Regular Rhythm. No: Systolic Murmur, Diastolic Murmur Abdomen: Soft, Other (surgical incision appears clean). No: Tenderness Extremities: Edema (1-2 plus edema feet and lower legs). No: Clubbing - Patient Data Lab Results Last 24 hrs: Laboratory Results - last 24 hr 04/20/17 Range/Units 05:32 Sodium 140 (136-146) mmol/L Potassium 3.9 (3.5-5.1) mmol/L Chloride 110 (98-110) mmol/L Carbon Dioxide 25 (21-31) mmol/L BUN 10 (6.0-23.0) mg/dL Creatinine 0.7 (0.6-1.5) mg/dL Est Cr Clr Drug Dosing 104.24 mL/min Estimated GFR (MDRD) > 60.0 ml/min Glucose 75 (60-110) mg/dL Calcium 8.1 L (8.8-10.8) mg/dL Result Diagrams: 04/19/17 23:45 04/20/17 05:32 *Q Meaningful Use (ADM) - VTE *Q VTE Criteria *Q: - Stroke *Q Stroke Criteria *Q: - AMI *Q AMI Criteria *Q: - Problem List (1) Dyspnea SNOMED Code(s): 805920692 ICD Code: R06.00 - DYSPNEA, UNSPECIFIED Status: Acute Current Visit: Yes (2) Status post repeat low transverse section SNOMED Code(s): 056346116, 728463582, 133395312, 070473714 ICD Code: Z98.891 - HISTORY OF UTERINE SCAR FROM PREVIOUS SURGERY Status: Acute Priority: High Current Visit: No Problem List Initiated/Reviewed/Updated: Yes Orders Last 24hrs: Active Orders 24 hr Category Date Time Status Activity as Tolerated [RC] .Routine Care 04/20/17 02:33 Active Communication Order [RC] DAILY Care 04/20/17 02:33 Active Telemetry Monitoring [Cardiac Monitoring] [RC] . Care 04/20/17 01:03 Active DIRECTED Regular Diet [DIET] Diet 04/20/17 Breakfast Active CXR [Chest 1V Frontal] [CR] Routine Exams 04/21/17 08:00 Ordered Echo Comp wo Cont [US] Routine Exams 04/20/17 02:33 Taken B-TYPE NATRIURETIC PEPTIDE,BNP [CHEM] AM Lab 04/21/17 05:11 Ordered BASIC METABOLIC PANEL,BMP [CHEM] AM Lab 04/21/17 05:11 Ordered CBC WITH AUTO DIFF [HEME] AM Lab 04/21/17 05:11 Ordered MAGNESIUM [CHEM] AM Lab 04/21/17 05:11 Ordered Acetaminophen [Tylenol Extra Strength] Med 04/20/17 02:33 Active 500 mg PO Q4H PRN Acetaminophen/oxyCODONE [Percocet 325-5 MG] Med 04/20/17 02:37 Active 1 - 2 tab PO Q4HR PRN Furosemide [Lasix] Med 04/20/17 14:00 Ordered 40 mg IVPUSH 1400 Furosemide [Lasix] Med 04/21/17 07:00 Ordered 40 mg IVPUSH BID Potassium Chloride [Klor-Con M20] Med 04/20/17 10:45 Ordered 20 meq PO BID Vit/FA/Fe Fumarate/Se [ MTR] Med 04/20/17 09:00 Active 1 each PO DAILY Medication Orders Acetaminophen (Tylenol Extra Strength) 500 mg PO Q4H PRN PRN Reason: Pain Furosemide (Lasix) 40 mg IVPUSH 1400 MONA Furosemide (Lasix) 40 mg IVPUSH BID MONA Oxycodone/Acetaminophen (Percocet 325-5 Mg) 1 - 2 tab PO Q4HR PRN PRN Reason: Pain Last Admin: 04/20/17 02:59 Dose: 1 tab Potassium Chloride (Klor-Con M20) 20 meq PO BID [facility] Prenat Multivit/Marine Equipment Design Engineer/Iron/Folic Ac ( Mtr) 1 each PO DAILY [facility] Last Admin: 04/20/17 09:54 Dose: 1 each Assessment/Plan Comment:: 04/20/2017 I discussed case with DR Morin. Lasix ordered echo results pending bnp tomorrow see orders possible discharge tomorrow. Niko Kaye MD
--- NOTE | 2017-04-20 10:54 | CT ---
EXAM DATE: 04/20/17 PATIENT'S AGE: 26 Patient: HOLLY MEZA Facility: [place], [place] Site . Site : 1990 Study: CT Chest Angio [id number]/14/2017 1:03:51 AM Ordering Physician: Doctor Rodriguez Final Report: INDICATION: Shortness of breath with exertion since yesterday. Recent 3 days ago. TECHNIQUE : CT scan of the chest. CTA PE protocol. IV contrast. IV Contrast: Isovue 370 50 mL Please note that all CT scans at this facility use dose modulation, iterative reconstruction and/or weight-based dosing when appropriate to reduce radiation dose to as low as reasonably achievable(ALARA). COMPARISON: None. FINDINGS: Pantry Cook CT Images: Lungs grossly clear. Pulmonary Arteries: No focal filling defect. Thoracic Aorta: Thoracic aorta is normal in caliber. No gross evidence of thoracic aortic dissection. Heart and Mediastinum: Heart size normal. No pericardial effusion. Lungs and Pleura: Scattered faint areas of ground-glass opacification in the lower lobes, which may represent air trapping. Faint nodular ground-glass opacification in the right upper lobe on series 502, image 25. No pneumothorax or pleural effusion. Chest Wall and Soft Tissues: Unremarkable. Thyroid Gland: Normal. Upper Abdomen: Limited evaluation of the upper abdomen unremarkable. Bones: No acute abnormality or suspicious lesion. IMPRESSION: 1. No acute pulmonary embolism. 2. Possible faint degree of air trapping in the lower lobes with small focus of pneumonitis in the right upper lobe. Dictated by Niko Garcia MD @ 04/20/2017 1:18:55 AM Dictated by: Niko Garcia MD @ 04/20/2017 01:19:01 (Electronic Signature) Report Signed by Proxy. [facility]
[2017-04-20] MEDS: Potassium Chloride 20 MEQ Tab.ER PO SCH ×2 (11:01→21:06)
[2017-04-20] MEDS ORDERED: Furosemide 40 MG/4 ML VIAL IVPUSH SCH (14:00)
--- NOTE | 2017-04-20 21:27 | PCM.DCSUM1 ---
Discharge Summary - Hospital Course Brief History: she was admitted with dyspnea; particularly dyspnea on exertion. 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 She was delivered about four days prior to admission of twin infants by repeat section by Dr Morin. - Discharge Data Discharge Date: 04/20/17 Discharge Disposition: Home, Self-Care 01 Condition: Good - Discharge Diagnosis/Problem(s) (1) Dyspnea SNOMED Code(s): 137473521 ICD Code: R06.00 - DYSPNEA, UNSPECIFIED Status: Acute Current Visit: Yes (2) Status post repeat low transverse section SNOMED Code(s): 840072522, 459368233, 283470332, [id number] ICD Code: Z98.891 - HISTORY OF UTERINE SCAR FROM PREVIOUS SURGERY Status: Acute Priority: High Current Visit: No - Patient Summary/Data Hospital Course: Her BNP was elevated at 354. She was given three doses of intravenous lasix. She had a significant diuresis. She has no dyspnea at rest at discharge. CTa showed no evidence of PE but there was a question of infiltrate at the right lung apex. The patient had no cough. CXR done on the evening of discharge was read by myself as normal. Echocardiogram read by Dr Lynne , preliminary verbal report showed normal LVEF of over 60% with no evidence of valve disease. I advised her that can increase the BNP even in a normal gestation and that the BNP may increase further if there is an element of preeclampsia. She remained normotensive during the hospital course. She has significant LE edema still at the time of discharge. Impression: I do not believe that she has truly had a post cardiomyopathy I advised that I believe that her fluid retention should self correct spontaneously within six weeks. she may follow up as planned with DR Morin and follow up promptly for fever or worsening dyspnea. Niko Kaye MD - Discharge Plan Home Medications: Home Meds PNV95/Ferrous Fumarate/FA [ Multivitamins] 1 tab PO DAILY 01/12/15 [ History] Acetaminophen/Codeine [Take Home: Acetaminophen/Codeine, 2 Tab Pack] 1 tab PO TID 04/19/17 [History] oxyCODONE HCl/Acetaminophen [Percocet 5-325 mg Tablet] 1 - 2 tab PO Q4HR PRN [History] Referrals: Kiera Ahumada CNM [Primary Care Provider] - (Continue scheduled appointment for next week.) - Patient Data Vitals - Most Recent: Last Vital Signs Temp 97.1 F 04/20/17 16:00 Pulse 63 04/20/17 16:00 Resp 18 04/20/17 16:00 BP 129/78 04/20/17 16:00 Pulse Ox 100 04/20/17 16:00 Weight - Most Recent: 89.3 kg I&O - Last 24 hours: Intake & Output 04/20/17 04/20/17 04/20/17 06:59 14:59 22:59 Intake Total 50 940 Output Total 1200 3000 Balance -1150 -2060 Lab Results - Last 24 hrs: Laboratory Results - last 24 hr 04/20/17 Range/Units 05:32 Sodium 140 (136-146) mmol/L Potassium 3.9 (3.5-5.1) mmol/L Chloride 110 (98-110) mmol/L Carbon Dioxide 25 (21-31) mmol/L BUN 10 (6.0-23.0) mg/dL Creatinine 0.7 (0.6-1.5) mg/dL Est Cr Clr Drug Dosing 104.24 mL/min Estimated GFR (MDRD) > 60.0 ml/min Glucose 75 (60-110) mg/dL Calcium 8.1 L (8.8-10.8) mg/dL Med Orders - Current: Current Medications Acetaminophen (Tylenol Extra Strength) 500 mg PO Q4H PRN PRN Reason: Pain Furosemide (Lasix) 40 mg IVPUSH 1400 [facility] Last Admin: 04/20/17 14:29 Dose: 40 mg Furosemide (Lasix) 40 mg IVPUSH BID [facility] Oxycodone/Acetaminophen (Percocet 325-5 Mg) 1 - 2 tab PO Q4HR PRN PRN Reason: Pain Last Admin: 04/20/17 12:52 Dose: 1 tab Potassium Chloride (Klor-Con M20) 20 meq PO BID [facility] Last Admin: 04/20/17 21:06 Dose: 20 meq Prenat Multivit/[place]/Iron/Folic Ac ( Mtr) 1 each PO DAILY [facility] Last Admin: 04/20/17 09:54 Dose: 1 each Discontinued Medications Furosemide (Lasix) 20 mg IVPUSH ONETIME ONE Stop: 04/20/17 00:37 Last Admin: 04/20/17 00:54 Dose: Not Given Furosemide (Lasix) Confirm Administered Dose 40 mg .ROUTE .STK-MED ONE Stop: 04/20/17 00:43 Last Admin: 04/20/17 00:54 Dose: 20 mg Iopamidol (Isovue-370 (76%)) 50 ml IV ONETIME ONE Stop: 04/20/17 01:00 Last Admin: 04/20/17 00:59 Dose: 50 ml *Q Meaningful Use (DIS) - VTE *Q VTE Criteria *Q: - Stroke *Q Stroke Criteria *Q: - AMI *Q AMI Criteria *Q:
[2017-04-20 23:32] VITALS: BP 120/71
[2017-04-21] MEDS ORDERED: Furosemide 40 MG/4 ML VIAL IVPUSH SCH (07:00)
--- NOTE | 2017-04-23 10:00 | CR ---
EXAM DATE: 04/20/17 PATIENT'S AGE: 26 Patient: HOLLY MEZA Facility: [place] Site . Site : 1990 Study: XRay Chest [id number]/14/2017 8:59:16 PM Ordering Physician: Vargas Pope Final Report: INDICATION: SOB TECHNIQUE: Chest radiograph 2 views COMPARISON: None FINDINGS: Cardiovascular and mediastinum: The cardiac silhouette is normal in appearance and size. Mediastinum is within normal limits. Lungs and pleural spaces: Both lungs are unremarkable in appearance. No sign of pleural effusion. No pneumothorax is seen. Bones and soft tissues: No significant findings. IMPRESSION: 1. No acute cardiopulmonary disease seen. Dictated by: Brent Devi MD @ 04/20/2017 21:14:08 (Electronic Signature) Report Signed by Proxy. [facility]
--- NOTE | 2017-04-24 14:35 | ECHO ---
EXAM DATE: 04/20/17 PATIENT'S AGE: 26 The echocardiogram report can be seen in this patient's EMR (Electronic Medical Record) in the Reports section. The report has also been scanned into PACS. MOUNIKA
== END 2017-04-20 22:45 | disposition home or self-care (01) ==
LOC: MW.ED 23:25 → MW.MS 04-20 00:41
PROVIDERS: ADMIT Family Medicine; ATTEND Family Medicine
DX: O99.89 Other specified diseases and conditions complicating pregnancy, childbirth and the puerperium (principal); R06.00 Dyspnea, unspecified; Z98.891 History of uterine scar from previous surgery; Z79.899 Other long term (current) drug therapy; Z88.1 Allergy status to other antibiotic agents; Z91.018 Allergy to other foods; Z87.891 Personal history of nicotine dependence
CPT/HCPCS: 36415; 71020; 71275; 80048; 80053; 83880; 85025; 93005; 93306; 96374; 96376; 99285; A9270; G0378; J1940; Q9967; 99284

== ENCOUNTER 2020-01-10 15:01 | Observation (INO) | payer OTHER ==
[2020-01-10] MEDS ORDERED: Sodium Chloride 0.9% 1,000 ML IV ONE ×2 (15:26→16:39)
[2020-01-10 16:14] LABS: BLOOD UREA NITROGEN,BUN 13 mg/dL (7.0-18.0); CARBON DIOXIDE,CO2 20.8 mmol/L (21.0-32.0); CHLORIDE,CL 101 mmol/L (98-107); GLUCOSE RANDOM 97 mg/dL (74-106); POTASSIUM,K 3.7 mmol/L (3.5-5.1); SODIUM,NA 135 mmol/L (136-145)
[2020-01-10] MEDS ORDERED: Acetaminophen 500 MG Tab PO ONE (16:51)
--- NOTE | 2020-01-10 16:51 | EDM.PDOC ---
ED HPI GENERAL MEDICAL PROBLEM - General Chief Complaint: Fever Stated Complaint: FEVER, CHILLS, LOWER BACK PAIN, HEADACHE AND VAGINAL BLEEDING Time Seen by Provider: 01/10/20 15:19 Source of Information: Reports: Patient History Limitations: Reports: No Limitations - History of Present Illness INITIAL COMMENTS - FREE TEXT/NARRATIVE: This 29 year old female who had a miscarriage December 11, [address] Morin. She was sent home after evaluation. She began to have vaginal bleeding post miscarriage and was given a ultrasound. She was told that products of conception was still present and that she would pass it and her bleeding will stop. She denies any chest pain or SOB. No dizziness, nausea or vomiting. Onset: Gradual Back/Headache Pain Score (Numeric/FACES): 7 - Related Data Allergies Allergy/AdvReac Type Severity Reaction Status Date / Time banana Allergy Swelling Verified 01/10/20 15:26 cefaclor [From Ceclor] Allergy Rash Verified 01/10/20 15:26 Home Meds: Home Meds . [No Known Home Meds] 01/10/20 [History] Past Medical History HEENT History: Reports: Other (See Below) Other HEENT History: wears contacts/glasses Cardiovascular History: Reports: None Respiratory History: Reports: None Other Respiratory History: PT states SOB after last Gastrointestinal History: Reports: GERD Genitourinary History: Reports: None RACING MANAGER History: Reports: Other RACING MANAGER History: 3 Csections Musculoskeletal History: Reports: Other (See Below) Other Musculoskeletal History: scoliosis Neurological History: Reports: None Psychiatric History: Reports: Anxiety Endocrine/Metabolic History: Reports: None Hematologic History: 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 Other Hematologic History: idiopathic thrombocytopenia as a child Immunologic History: Reports: None Oncologic (Cancer) History: Reports: None Dermatologic History: Reports: Psoriasis - Infectious Disease History Infectious Disease History: Reports: Chicken Pox - Past Surgical History Head Surgeries/Procedures: Reports: None Cardiovascular Surgical History: Reports: None Respiratory Surgical History: Reports: None GI Surgical History: Reports: None Female Surgical History: Reports: Section Endocrine Surgical History: Reports: None Neurological Surgical History: Reports: None Musculoskeletal Surgical History: Reports: None Social & Family History - Family History Family Medical History: Noncontributory - Tobacco Use Smoking Status *Q: Never Smoker - Caffeine Use Caffeine Use: Reports: Coffee - Recreational Drug Use Recreational Drug Use: No ED ROS GENERAL - Review of Systems Review Of Systems: See Below Constitutional: Reports: Fever, Chills, Decreased Appetite HEENT: Reports: No Symptoms Respiratory: Reports: No Symptoms Cardiovascular: Reports: No Symptoms Endocrine: Reports: No Symptoms GI/Abdominal: Reports: No Symptoms : Reports: Other (vaginal bleeding 4 weeks spontaneous ) Musculoskeletal: Reports: No Symptoms Skin: Reports: No Symptoms Neurological: Reports: No Symptoms Psychiatric: Reports: No Symptoms Hematologic/Lymphatic: Reports: No Symptoms ED EXAM, GENERAL - Physical Exam Exam: See Below Exam Limited By: No Limitations General Appearance: Alert, WD/WN, No Apparent Distress Throat/Mouth: Normal Inspection, Normal Oropharynx, No Airway Compromise Head: Atraumatic, Normocephalic Neck: Normal Inspection, Supple, Full Range of Motion Respiratory/Chest: No Respiratory Distress, Lungs Clear, Normal Breath Sounds, Chest Non-Tender Cardiovascular: Normal Peripheral Pulses, Regular Rate, Rhythm, No Edema, No Gallop, No Murmur, No Rub Peripheral Pulses: 3+: Radial (L), Radial (R), Femoral (L), Femoral (R), Dorsalis Pedis (L), Dorsalis Pedis (R) GI/Abdominal: Normal Bowel Sounds, Soft, Non-Tender, No Organomegaly, No Distention, No Abnormal Bruit, No Mass (Female) Exam: Deferred (The patient had a pelvic ultrasound which shows products of conception.), Vaginal Bleeding Rectal (Female) Exam: Deferred Back Exam: Normal Inspection Extremities: Normal Inspection, Normal Capillary Refill Neurological: Alert, Oriented (times 4), CN II-XII Intact, Normal Reflexes, No Motor/Sensory Deficits Psychiatric: Normal Affect, Normal Mood Skin Exam: Warm, Dry, Intact, Normal Color, No Rash Lymphatic: No Adenopathy Course - Vital Signs Text/Narrative:: I talked with Dr. Ava Finch at 5:58PM. She will be admitted to Med/Surg/ TELE. The patient agrees with the admission plan. Last Recorded V/S: Last Vital Signs Temp 99.4 F 01/10/20 17:51 Pulse 100 01/10/20 17:51 Resp 18 01/10/20 17:51 BP 130/84 01/10/20 17:51 Pulse Ox 99 01/10/20 17:51 - Orders/Labs/Meds Orders: Active Orders 24 hr Category Date Time Status CORONAVIRUS COVID-19 PCR PHL [MREF] Stat Lab 01/10/20 15:38 Received CULTURE BLOOD [BC] Stat Lab 01/10/20 15:35 Received CULTURE BLOOD [BC] Stat Lab 01/10/20 15:53 Received CULTURE URINE [RM] Stat Lab 01/10/20 17:09 Received Blood Culture x2 Reflex Set [OM.PC] Stat Oth 01/10/20 15:30 Ordered Isolation [COMM] Routine Oth 01/10/20 15:26 Active Labs: Laboratory Tests 01/10/20 01/10/20 01/10/20 Range/Units 15:35 15:35 15:35 WBC 6.88 (4.0-11.0) K/uL RBC 4.19 L (4.30-5.90) M/uL Hgb 12.8 (12.0-16.0) g/dL Hct 38.5 (36.0-46.0) % MCV 91.9 (80.0-98.0) fL MCH 30.5 (27.0-32.0) pg MCHC 33.2 (31.0-37.0) g/dL RDW Std Deviation 42.2 (28.0-62.0) fl RDW Coeff of Liz 13 (11.0-15.0) % Plt Count 198 (150-400) K/uL MPV 9.70 (7.40-12.00) fL Neut % (Auto) 88.1 H (48.0-80.0) % Lymph % (Auto) 5.7 L (16.0-40.0) % [place] % (Auto) 6.1 (0.0-15.0) % Eos % (Auto) 0.0 (0.0-7.0) % Baso % (Auto) 0.1 (0.0-1.5) % Neut # (Auto) 6.1 H (1.4-5.7) K/uL Lymph # (Auto) 0.4 L (0.6-2.4) K/uL [place] # (Auto) 0.4 (0.0-0.8) K/uL Eos # (Auto) 0.0 (0.0-0.7) K/uL Baso # (Auto) 0.0 (0.0-0.1) K/uL Nucleated RBC % 0.0 /100WBC Nucleated RBCs # 0 K/uL Lactate (0.20-2.00) mmol/L Sodium 135 L (136-145) mmol/L Potassium 3.7 (3.5-5.1) mmol/L Chloride 101 (98-107) mmol/L Carbon Dioxide 20.8 L (21.0-32.0) mmol/L BUN 13 (7.0-18.0) mg/dL Creatinine 0.9 (0.6-1.0) mg/dL Est Cr Clr Drug Dosing 78.93 mL/min Estimated GFR (MDRD) > 60.0 ml/min Glucose 97 (74-106) mg/dL Calcium 8.5 (8.5-10.1) mg/dL Total Bilirubin 1.5 H (0.2-1.0) mg/dL AST 16 (15-37) IU/L ALT 20 (14-63) IU/L Alkaline Phosphatase 68 (46-116) U/L Total Protein 7.2 (6.4-8.2) g/dL Albumin 3.6 (3.4-5.0) g/dL Globulin 3.6 (2.6-4.0) g/dL Albumin/Globulin Ratio 1.0 (0.9-1.6) HCG, Quant 11.0 mIU/mL Urine Color Urine Appearance Urine pH (5.0-8.0) Ur Specific [place] (1.001-1.035) Urine Protein (NEGATIVE) mg/dL Urine Glucose (UA) (NEGATIVE) mg/dL Urine Ketones (NEGATIVE) mg/dL Urine Occult Blood (NEGATIVE) Urine Nitrite (NEGATIVE) Urine Bilirubin (NEGATIVE) Urine Urobilinogen (<2.0) EU/dL Ur Leukocyte Esterase (NEGATIVE) Urine RBC (0-2/HPF) Urine WBC (0-5/HPF) Ur Epithelial Cells (NONE-FEW) Urine Bacteria (NEGATIVE) Blood Type A POSITIVE 01/10/20 01/10/20 Range/Units 15:35 17:09 WBC (4.0-11.0) K/uL RBC (4.30-5.90) M/uL Hgb (12.0-16.0) g/dL Hct (36.0-46.0) % MCV (80.0-98.0) fL MCH (27.0-32.0) pg MCHC (31.0-37.0) g/dL RDW Std Deviation (28.0-62.0) fl RDW Coeff of Liz (11.0-15.0) % Plt Count (150-400) K/uL MPV (7.40-12.00) fL Neut % (Auto) (48.0-80.0) % Lymph % (Auto) (16.0-40.0) % [place] % (Auto) (0.0-15.0) % Eos % (Auto) (0.0-7.0) % Baso % (Auto) (0.0-1.5) % Neut # (Auto) (1.4-5.7) K/uL Lymph # (Auto) (0.6-2.4) K/uL [place] # (Auto) (0.0-0.8) K/uL Eos # (Auto) (0.0-0.7) K/uL Baso # (Auto) (0.0-0.1) K/uL Nucleated RBC % /100WBC Nucleated RBCs # K/uL Lactate 0.9 (0.20-2.00) mmol/L Sodium (136-145) mmol/L Potassium (3.5-5.1) mmol/L Chloride (98-107) mmol/L Carbon Dioxide (21.0-32.0) mmol/L BUN (7.0-18.0) mg/dL Creatinine (0.6-1.0) mg/dL Est Cr Clr Drug Dosing mL/min Estimated GFR (MDRD) ml/min Glucose (74-106) mg/dL Calcium (8.5-10.1) mg/dL Total Bilirubin (0.2-1.0) mg/dL AST (15-37) IU/L ALT (14-63) IU/L Alkaline Phosphatase (46-116) U/L Total Protein (6.4-8.2) g/dL Albumin (3.4-5.0) g/dL Globulin (2.6-4.0) g/dL Albumin/Globulin Ratio (0.9-1.6) HCG, Quant mIU/mL Urine Color YELLOW Urine Appearance CLEAR Urine pH 6.0 (5.0-8.0) Ur Specific [place] 1.010 (1.001-1.035) Urine Protein NEGATIVE (NEGATIVE) mg/dL Urine Glucose (UA) NEGATIVE (NEGATIVE) mg/dL Urine Ketones >=80 (NEGATIVE) mg/dL Urine Occult Blood LARGE H (NEGATIVE) Urine Nitrite NEGATIVE (NEGATIVE) Urine Bilirubin NEGATIVE (NEGATIVE) Urine Urobilinogen 0.2 (<2.0) EU/dL Ur Leukocyte Esterase SMALL H (NEGATIVE) Urine RBC 1-3 (0-2/HPF) Urine WBC 3-6 (0-5/HPF) Ur Epithelial Cells MODERATE (NONE-FEW) Urine Bacteria FEW (NEGATIVE) Blood Type Meds: Medications Discontinued Medications Generic Name Dose Route Start Last Admin Trade Name Kaydenq PRN Reason Stop Dose Admin Acetaminophen 750 mg 01/10/20 16:51 01/10/20 17:06 Tylenol Extra Strength PO 01/10/20 16:52 750 mg ONETIME ONE Administration Sodium Chloride 1,000 mls @ 999 mls/hr 01/10/20 15:26 01/10/20 15:44 Normal Saline IV 01/10/20 16:26 999 mls/hr STAT ONE Administration Sodium Chloride 1,000 mls @ 1,000 mls/hr 01/10/20 16:39 01/10/20 16:45 Normal Saline IV 01/10/20 17:38 1,000 mls/hr .Bolus ONE Administration Departure - Departure Time of Disposition: 18:19 Disposition: Refer to Observation Condition: Fair Clinical Impression: Complication after spontaneous - Discharge Information *PRESCRIPTION DRUG MONITORING PROGRAM REVIEWED*: Yes *COPY OF PRESCRIPTION DRUG MONITORING REPORT IN PATIENT MONICA: Yes Referrals: Priti Baltazar NP [Primary Care Provider] - Sepsis Event Note - Evaluation Sepsis Screening Result: Possible Sepsis Risk - Focused Exam Vital Signs: Vital Signs Temp Temp Temp Pulse Resp BP Pulse Ox 01/10/20 17:51 99.4 F 100 18 130/84 99 01/10/20 17:06 100.4 F 01/10/20 17:00 100.4 F 111 H 18 125/74 98 01/10/20 15:22 100.6 F 120 H 16 125/84 97 Date Exam was Performed: 01/10/20 Time Exam was Performed: 17:55
--- NOTE | 2020-01-10 17:27 | US ---
Pelvic ultrasound: Multiple real-time images were obtained both transabdominally and transvaginally. Comparison: No prior pelvic imaging is available. Findings: Uterus is anteverted. Small amount of debris is noted within the endometrial representing either small blood clot or minimal retained products of conception. Follicles are noted within the right ovary. No larger cyst or solid finding is seen. Left ovary not visualized on this exam. No free fluid is seen. Impression: 1. Small amount of debris within the endometrial cavity representing either a small blood clot or minimal retained products of conception. 2. Right ovary appears within normal limits. 3. No left ovary is visualized. Diagnostic code #3 Study was dictated in MDT
[2020-01-10] MEDS ORDERED: Ampicillin 2 GM in Sodium Chloride 0.9% 100 ML IV ONE (18:05)
[2020-01-10] MEDS ORDERED: Clindamycin Phosphate in D5W 900 MG in Premix Bag 1 BAG IV ONE ×2 (18:06)
[2020-01-10] MEDS: Sodium Chloride 0.9% 1,000 ML IV ONE (18:24)
[2020-01-10] MEDS ORDERED: Ibuprofen 600 MG Tab PO PRN (22:12)
--- NOTE | 2020-01-10 22:26 | PCM.HP.2 ---
H&P History of Present Illness - General Date of Service: 01/10/20 Admit Problem/Dx: Admission Diagnosis/Problem Admission Diagnosis/Problem Fever, unspecified Source of Information: Patient History Limitations: Reports: No Limitations - History of Present Illness Initial Comments - Free Text/Narative: 29 yo with history of a spontaneous 12/11/2019. She has been followed conservatively with a decreasing quant hcg. Her bleeding has been minimal. She presented to the ED tonight due to fever of 103. States about 5 days ago began having a low grade fever, just not feeling well and low back pain. Vaginal bleeding is minimal with no malodor. She denies pelvic pain. She denies dysuria, hematuria. Denies cough, sore throat. She denies chest pain or shortness of breath. Denies abdominal pain. Had some nausea earlier today. She denies sick contacts. She has not recently travelled. 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 She states she does not bartend. Back/Headache Pain Score (Numeric/FACES): 7 - Related Data Allergies/Adverse Reactions: Allergies Allergy/AdvReac Type Severity Reaction Status Date / Time banana Allergy Swelling Verified 01/10/20 15:26 cefaclor [From Ceclor] Allergy Rash Verified 01/10/20 15:26 Home Medications: Home Meds . [No Known Home Meds] 01/10/20 [History] Past Medical History HEENT History: Reports: None, Other (See Below) Other HEENT History: wears contacts/glasses Cardiovascular History: Reports: None Respiratory History: Reports: None Other Respiratory History: PT states SOB after last Gastrointestinal History: Reports: GERD Genitourinary History: Reports: None [employer] History: Reports: Spontaneous : 4 Para: 4 (twins) LMP (Approximate): 3 Months Other OB/BYN History: 3 Csections Musculoskeletal History: Reports: Other (See Below) Other Musculoskeletal History: scoliosis Neurological History: Reports: None Psychiatric History: Reports: Anxiety Endocrine/Metabolic History: Reports: None Hematologic History: 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 Other Hematologic History: idiopathic thrombocytopenia as a child Immunologic History: Reports: None Oncologic (Cancer) History: Reports: None Dermatologic History: Reports: Psoriasis - Infectious Disease History Infectious Disease History: Reports: Chicken Pox - Past Surgical History Head Surgeries/Procedures: Reports: None Cardiovascular Surgical History: Reports: None Respiratory Surgical History: Reports: None GI Surgical History: Reports: None Female Surgical History: Reports: Section ( x 3) Endocrine Surgical History: Reports: None Neurological Surgical History: Reports: None Musculoskeletal Surgical History: Reports: None Oncologic Surgical History: Reports: None Dermatological Surgical History: Reports: None Social & Family History - Family History Family Medical History: Noncontributory - Tobacco Use Smoking Status *Q: Current Some Day Smoker Years of Tobacco use: 15 Packs/Tins Daily: 1 Used Tobacco, but Quit: No - Caffeine Use Caffeine Use: Reports: Coffee, Soda - Recreational Drug Use Recreational Drug Use: No - Living Situation & Occupation Occupation: Employed (owns local bar) H&P Review of Systems - Review of Systems: Review Of Systems: See Below General: Reports: Fever, Chills, Malaise, Fatigue HEENT: Reports: No Symptoms Pulmonary: Reports: No Symptoms Cardiovascular: Reports: No Symptoms Gastrointestinal: Reports: Nausea Genitourinary: Reports: Other (minimal vaginal bleeding) Musculoskeletal: Reports: No Symptoms Skin: Reports: No Symptoms Psychiatric: Reports: No Symptoms Neurological: Reports: No Symptoms Hematologic/Lymphatic: Reports: No Symptoms Immunologic: Reports: No Symptoms Exam - Exam Exam: See Below - Vital Signs Vital Signs: Last Vital Signs Temp 36.7 C 01/10/20 20:44 Pulse 87 01/10/20 20:44 Resp 17 01/10/20 20:44 BP 104/61 01/10/20 20:44 Pulse Ox 97 01/10/20 20:44 Weight: 90.083 kg - Exam General: Alert, Oriented Neck: Supple, Trachea Midline Lungs: Normal Respiratory Effort Cardiovascular: Regular Rate, Regular Rhythm GI/Abdominal Exam: Normal Bowel Sounds, Soft, Non-Tender, No Distention. No: Guarding, Rigid (Female) Exam: Normal External Exam, Vaginal Bleeding (scant), Other (uterus is nontender on bimanual exam). No: Adnexal Tenderness, Cervix Motion Tenderness Back Exam: Normal Inspection, Full Range of Motion Extremities: Normal Inspection, Normal Capillary Refill Skin: Warm, Dry, Intact Neurological: Cranial Nerves Intact Neuro Extensive - Mental Status: Alert, Oriented x3, Normal Mood/Affect, Normal Cognition - Patient Data Lab Results Last 24 hrs: Laboratory Results - last 24 hr 01/10/20 01/10/20 01/10/20 Range/Units 15:35 15:35 15:35 WBC 6.88 (4.0-11.0) K/uL RBC 4.19 L (4.30-5.90) M/uL Hgb 12.8 (12.0-16.0) g/dL Hct 38.5 (36.0-46.0) % MCV 91.9 (80.0-98.0) fL MCH 30.5 (27.0-32.0) pg MCHC 33.2 (31.0-37.0) g/dL RDW Std Deviation 42.2 (28.0-62.0) fl RDW Coeff of Liz 13 (11.0-15.0) % Plt Count 198 (150-400) K/uL MPV 9.70 (7.40-12.00) fL Neut % (Auto) 88.1 H (48.0-80.0) % Lymph % (Auto) 5.7 L (16.0-40.0) % [place] % (Auto) 6.1 (0.0-15.0) % Eos % (Auto) 0.0 (0.0-7.0) % Baso % (Auto) 0.1 (0.0-1.5) % Neut # (Auto) 6.1 H (1.4-5.7) K/uL Lymph # (Auto) 0.4 L (0.6-2.4) K/uL [place] # (Auto) 0.4 (0.0-0.8) K/uL Eos # (Auto) 0.0 (0.0-0.7) K/uL Baso # (Auto) 0.0 (0.0-0.1) K/uL Nucleated RBC % 0.0 /100WBC Nucleated RBCs # 0 K/uL Lactate (0.20-2.00) mmol/L Sodium 135 L (136-145) mmol/L Potassium 3.7 (3.5-5.1) mmol/L Chloride 101 (98-107) mmol/L Carbon Dioxide 20.8 L (21.0-32.0) mmol/L BUN 13 (7.0-18.0) mg/dL Creatinine 0.9 (0.6-1.0) mg/dL Est Cr Clr Drug Dosing 78.93 mL/min Estimated GFR (MDRD) > 60.0 ml/min Glucose 97 (74-106) mg/dL Calcium 8.5 (8.5-10.1) mg/dL Total Bilirubin 1.5 H (0.2-1.0) mg/dL AST 16 (15-37) IU/L ALT 20 (14-63) IU/L Alkaline Phosphatase 68 (46-116) U/L Total Protein 7.2 (6.4-8.2) g/dL Albumin 3.6 (3.4-5.0) g/dL Globulin 3.6 (2.6-4.0) g/dL Albumin/Globulin Ratio 1.0 (0.9-1.6) HCG, Quant 11.0 mIU/mL Urine Color Urine Appearance Urine pH (5.0-8.0) Ur Specific Rowe (1.001-1.035) Urine Protein (NEGATIVE) mg/dL Urine Glucose (UA) (NEGATIVE) mg/dL Urine Ketones (NEGATIVE) mg/dL Urine Occult Blood (NEGATIVE) Urine Nitrite (NEGATIVE) Urine Bilirubin (NEGATIVE) Urine Urobilinogen (<2.0) EU/dL Ur Leukocyte Esterase (NEGATIVE) Urine RBC (0-2/HPF) Urine WBC (0-5/HPF) Ur Epithelial Cells (NONE-FEW) Urine Bacteria (NEGATIVE) Darlene species DNA (NEGATIVE) Gardnerella DNA Probe (NEGATIVE) Trichomonas DNA Probe (NEGATIVE) Blood Type A POSITIVE 01/10/20 01/10/20 01/10/20 Range/Units 15:35 17:09 18:15 WBC (4.0-11.0) K/uL RBC (4.30-5.90) M/uL Hgb (12.0-16.0) g/dL Hct (36.0-46.0) % MCV (80.0-98.0) fL MCH (27.0-32.0) pg MCHC (31.0-37.0) g/dL RDW Std Deviation (28.0-62.0) fl RDW Coeff of Liz (11.0-15.0) % Plt Count (150-400) K/uL MPV (7.40-12.00) fL Neut % (Auto) (48.0-80.0) % Lymph % (Auto) (16.0-40.0) % [place] % (Auto) (0.0-15.0) % Eos % (Auto) (0.0-7.0) % Baso % (Auto) (0.0-1.5) % Neut # (Auto) (1.4-5.7) K/uL Lymph # (Auto) (0.6-2.4) K/uL [place] # (Auto) (0.0-0.8) K/uL Eos # (Auto) (0.0-0.7) K/uL Baso # (Auto) (0.0-0.1) K/uL Nucleated RBC % /100WBC Nucleated RBCs # K/uL Lactate 0.9 (0.20-2.00) mmol/L Sodium (136-145) mmol/L Potassium (3.5-5.1) mmol/L Chloride (98-107) mmol/L Carbon Dioxide (21.0-32.0) mmol/L BUN (7.0-18.0) mg/dL Creatinine (0.6-1.0) mg/dL Est Cr Clr Drug Dosing mL/min Estimated GFR (MDRD) ml/min Glucose (74-106) mg/dL Calcium (8.5-10.1) mg/dL Total Bilirubin (0.2-1.0) mg/dL AST (15-37) IU/L ALT (14-63) IU/L Alkaline Phosphatase (46-116) U/L Total Protein (6.4-8.2) g/dL Albumin (3.4-5.0) g/dL Globulin (2.6-4.0) g/dL Albumin/Globulin Ratio (0.9-1.6) HCG, Quant mIU/mL Urine Color YELLOW Urine Appearance CLEAR Urine pH 6.0 (5.0-8.0) Ur Specific Rowe 1.010 (1.001-1.035) Urine Protein NEGATIVE (NEGATIVE) mg/dL Urine Glucose (UA) NEGATIVE (NEGATIVE) mg/dL Urine Ketones >=80 (NEGATIVE) mg/dL Urine Occult Blood LARGE H (NEGATIVE) Urine Nitrite NEGATIVE (NEGATIVE) Urine Bilirubin NEGATIVE (NEGATIVE) Urine Urobilinogen 0.2 (<2.0) EU/dL Ur Leukocyte Esterase SMALL H (NEGATIVE) Urine RBC 1-3 (0-2/HPF) Urine WBC 3-6 (0-5/HPF) Ur Epithelial Cells MODERATE (NONE-FEW) Urine Bacteria FEW (NEGATIVE) Darlene species DNA NEGATIVE (NEGATIVE) Gardnerella DNA Probe POSITIVE H (NEGATIVE) Trichomonas DNA Probe NEGATIVE (NEGATIVE) Blood Type Result Diagrams: 01/10/20 15:35 01/10/20 15:35 Shekhar Results Last 24 hrs: Microbiology 01/10/20 15:38 Influenza Type A Antigen Screen - Final Nasopharyngeal Swab NEGATIVE INFLUENZA A VIRUS AG REFERENCE RANGE: NEGATIVE Influenza Type B Antigen Screen - Final NEGATIVE INFLUENZA B VIRUS AG REFERENCE RANGE: NEGATIVE Sepsis Event Note - Evaluation Sepsis Screening Result: No Definite Risk - Focused Exam Vital Signs: Vital Signs Temp Temp Temp Pulse Resp BP Pulse Ox 01/10/20 20:44 36.7 C 87 17 104/61 97 01/10/20 20:00 37.2 C 90 17 117/71 97 01/10/20 18:30 37.2 C 102 H 18 104/71 97 01/10/20 17:51 37.4 C 100 18 130/84 99 01/10/20 17:36 37.4 C 01/10/20 17:06 38.0 C 01/10/20 17:00 38.0 C 111 H 18 125/74 98 01/10/20 15:22 38.1 C 120 H 16 125/84 97 Date Exam was Performed: 01/10/20 Time Exam was Performed: 22:21 - Problem List (1) Fever SNOMED Code(s): 982165269 ICD Code: R50.9 - FEVER, UNSPECIFIED Status: Acute Current Visit: Yes Problem List Initiated/Reviewed/Updated: Yes Orders Last 24hrs: Active Orders 24 hr Category Date Time Status Admission Status [Patient Status] [ADT] Stat ADT 01/10/20 18:13 Active Patient Status [ADT] Routine ADT 01/10/20 22:12 Ordered Ambulate [RC] PER UNIT ROUTINE Care 01/10/20 22:16 Ordered Intake and Output [RC] QSHIFT Care 01/10/20 22:14 Ordered Notify Provider Consults [RC] ASDIRECTED Care 01/10/20 18:14 Active Notify Provider Vital Signs [RC] ASDIRECTED Care 01/10/20 22:15 Ordered Oxygen Therapy [RC] PRN Care 01/10/20 22:12 Ordered Telemetry Monitoring [Cardiac Monitoring] [RC] Q8H Care 01/10/20 20:00 Active Up ad Ethel [RC] ASDIRECTED Care 01/10/20 22:12 Ordered VTE/DVT Education [RC] PER UNIT ROUTINE Care 01/10/20 22:12 Ordered Vital Signs [RC] Q4H Care 01/10/20 22:12 Ordered Regular Diet [DIET] Diet 01/10/20 Dinner Ordered CBC WITH AUTO DIFF [HEME] AM Lab 01/11/20 05:11 Ordered CHLAMYDIA AND GONORRHEA BY TMA Stat Lab 01/10/20 18:15 Received COMPREHENSIVE METABOLIC PN,CMP [CHEM] AM Lab 01/11/20 05:11 Ordered CORONAVIRUS COVID-19 PCR PHL [MREF] Stat Lab 01/10/20 15:38 Received CULTURE BLOOD [BC] Stat Lab 01/10/20 15:35 Received CULTURE BLOOD [BC] Stat Lab 01/10/20 15:53 Received CULTURE GENITAL [RM] Stat Lab 01/10/20 16:20 Received CULTURE URINE [RM] Stat Lab 01/10/20 17:09 Received Acetaminophen [Tylenol] Med 01/10/20 22:12 Ordered 650 mg PO Q4H PRN Ampicillin 1 gm Med 01/10/20 22:15 Ordered Sodium Chloride 0.9% [Normal Saline] 50 ml IV Q6H Clindamycin Phosphate in D5W [Cleocin in D5W] 900 mg Med 01/10/20 22:30 Ordered Premix Bag 1 bag IV Q8H Ibuprofen [Motrin] Med 01/10/20 22:12 Ordered 600 mg PO Q6H PRN Pharmacy to Dose - Gentamicin Med 01/10/20 22:15 Ordered 1 dose .XX ASDIRECTED Sodium Chloride 0.9% [Normal Saline] 1,000 ml Med 01/10/20 18:22 Active IV .Bolus Blood Culture x2 Reflex Set [OM.PC] Stat Oth 01/10/20 15:30 Ordered Isolation [COMM] Routine Oth 01/10/20 15:26 Active Resuscitation Status Routine Resus Stat 01/10/20 22:12 Ordered Medication Orders Sodium Chloride (Normal Saline) 1,000 mls @ 125 mls/hr IV .Bolus ONE Stop: 01/11/20 02:21 Last Admin: 04/04/20 18:24 Dose: 125 mls/hr Assessment/Plan Comment:: Fever Low back discomfort ED physician felt this could be endometritis; however, my exam in not consistent with that. She is not tender at all on bimanual exam. Lochia is minimal with no malodor. Sonogram reveals a 5 mm endometrial thickness. She has no CVA tenderness, but had blood and leuk esterase on her UA. Urine culture is pending. Blood cultures are pending. Has BV on affirm, will be treated by clindamycin and will cover orally. COVID screen is pending. With initial iv antibiotics of ampicliin/gentamicin/clindamycin and iv fluid hydration, patient states she is feeling better. She is currently afebrile and no longer tachycardic. Will continue iv antibiotics, reevaluate CBC, CMP in the morning and continue iv fluid hydration. White count and lactate are normal on initial labs. Patient agrees to plan of care. Currently I am most suspicious for urinary tract infection/early pyelonephritis.
[2020-01-11] MEDS: Ampicillin 1 GM in Sodium Chloride 0.9% 50 ML IV SCH ×4 (00:33→19:04)
[2020-01-11] MEDS: Acetaminophen 325 MG Tab PO PRN ×2 (00:48→11:07)
[2020-01-11] MEDS: Clindamycin Phosphate in D5W 900 MG in Premix Bag 1 BAG IV SCH ×6 (01:26→18:05)
[2020-01-11] MEDS: Sodium Chloride 0.9% 1,000 ML IV ONE (01:33)
[2020-01-11 04:32] LABS: BLOOD UREA NITROGEN,BUN 11 mg/dL (7.0-18.0); CARBON DIOXIDE,CO2 19.9 mmol/L (21.0-32.0); CHLORIDE,CL 106 mmol/L (98-107); GLUCOSE RANDOM 82 mg/dL (74-106); POTASSIUM,K 3.5 mmol/L (3.5-5.1); SODIUM,NA 139 mmol/L (136-145)
[2020-01-11] MEDS ORDERED: Sodium Chloride 0.9% 1,000 ML IV SCH (05:15)
--- NOTE | 2020-01-11 12:16 | PCM.PN ---
- General Info Date of Service: 01/11/20 Admission Dx/Problem (Free Text): Patient rested fairly well. Her low back pain is much improved. Has mild headache and neck pain. She is tolerating a regular diet. Scant vaginal bleeding. She has remained afebrile. - Review of Systems General: Reports: No Symptoms HEENT: Reports: No Symptoms Pulmonary: Reports: No Symptoms Cardiovascular: Reports: No Symptoms Gastrointestinal: Reports: No Symptoms Genitourinary: Reports: No Symptoms Musculoskeletal: Reports: Neck Pain (mild) Skin: Reports: No Symptoms Neurological: Reports: Headache (mild) Psychiatric: Reports: No Symptoms - Patient Data Vitals - Most Recent: Last Vital Signs Temp 37.2 C 01/11/20 08:00 Pulse 91 01/11/20 08:00 Resp 16 01/11/20 08:00 BP 115/70 01/11/20 08:00 Pulse Ox 98 01/11/20 08:00 Weight - Most Recent: 90.083 kg I&O - Last 24 Hours: Intake & Output 01/10/20 01/11/20 01/11/20 22:59 06:59 14:59 Intake Total 208 600 Output Total 1200 Balance 208 -600 Lab Results Last 24 Hours: Laboratory Results - last 24 hr 01/10/20 01/10/20 01/10/20 Range/Units 15:35 15:35 15:35 WBC 6.88 (4.0-11.0) K/uL RBC 4.19 L (4.30-5.90) M/uL Hgb 12.8 (12.0-16.0) g/dL Hct 38.5 (36.0-46.0) % MCV 91.9 (80.0-98.0) fL MCH 30.5 (27.0-32.0) pg MCHC 33.2 (31.0-37.0) g/dL RDW Std Deviation 42.2 (28.0-62.0) fl RDW Coeff of Liz 13 (11.0-15.0) % Plt Count 198 (150-400) K/uL MPV 9.70 (7.40-12.00) fL Neut % (Auto) 88.1 H (48.0-80.0) % Lymph % (Auto) 5.7 L (16.0-40.0) % [place] % (Auto) 6.1 (0.0-15.0) % Eos % (Auto) 0.0 (0.0-7.0) % Baso % (Auto) 0.1 (0.0-1.5) % Neut # (Auto) 6.1 H (1.4-5.7) K/uL Lymph # (Auto) 0.4 L (0.6-2.4) K/uL [place] # (Auto) 0.4 (0.0-0.8) K/uL Eos # (Auto) 0.0 (0.0-0.7) K/uL Baso # (Auto) 0.0 (0.0-0.1) K/uL Nucleated RBC % 0.0 /100WBC Nucleated RBCs # 0 K/uL Lactate (0.20-2.00) mmol/L Sodium 135 L (136-145) mmol/L Potassium 3.7 (3.5-5.1) mmol/L Chloride 101 (98-107) mmol/L Carbon Dioxide 20.8 L (21.0-32.0) mmol/L BUN 13 (7.0-18.0) mg/dL Creatinine 0.9 (0.6-1.0) mg/dL Est Cr Clr Drug Dosing 78.93 mL/min Estimated GFR (MDRD) > 60.0 ml/min Glucose 97 (74-106) mg/dL Calcium 8.5 (8.5-10.1) mg/dL Total Bilirubin 1.5 H (0.2-1.0) mg/dL AST 16 (15-37) IU/L ALT 20 (14-63) IU/L Alkaline Phosphatase 68 (46-116) U/L Total Protein 7.2 (6.4-8.2) g/dL Albumin 3.6 (3.4-5.0) g/dL Globulin 3.6 (2.6-4.0) g/dL Albumin/Globulin Ratio 1.0 (0.9-1.6) HCG, Quant 11.0 mIU/mL Urine Color Urine Appearance Urine pH (5.0-8.0) Ur Specific [place] (1.001-1.035) Urine Protein (NEGATIVE) mg/dL Urine Glucose (UA) (NEGATIVE) mg/dL Urine Ketones (NEGATIVE) mg/dL Urine Occult Blood (NEGATIVE) Urine Nitrite (NEGATIVE) Urine Bilirubin (NEGATIVE) Urine Urobilinogen (<2.0) EU/dL Ur Leukocyte Esterase (NEGATIVE) Urine RBC (0-2/HPF) Urine WBC (0-5/HPF) Ur Epithelial Cells (NONE-FEW) Urine Bacteria (NEGATIVE) Random Gentamicin (2.0-10.0) ug/mL Darlene species DNA (NEGATIVE) Gardnerella DNA Probe (NEGATIVE) Trichomonas DNA Probe (NEGATIVE) Blood Type A POSITIVE 01/10/20 01/10/20 01/10/20 Range/Units 15:35 17:09 18:15 WBC (4.0-11.0) K/uL RBC (4.30-5.90) M/uL Hgb (12.0-16.0) g/dL Hct (36.0-46.0) % MCV (80.0-98.0) fL MCH (27.0-32.0) pg MCHC (31.0-37.0) g/dL RDW Std Deviation (28.0-62.0) fl RDW Coeff of Liz (11.0-15.0) % Plt Count (150-400) K/uL MPV (7.40-12.00) fL Neut % (Auto) (48.0-80.0) % Lymph % (Auto) (16.0-40.0) % [place] % (Auto) (0.0-15.0) % Eos % (Auto) (0.0-7.0) % Baso % (Auto) (0.0-1.5) % Neut # (Auto) (1.4-5.7) K/uL Lymph # (Auto) (0.6-2.4) K/uL [place] # (Auto) (0.0-0.8) K/uL Eos # (Auto) (0.0-0.7) K/uL Baso # (Auto) (0.0-0.1) K/uL Nucleated RBC % /100WBC Nucleated RBCs # K/uL Lactate 0.9 (0.20-2.00) mmol/L Sodium (136-145) mmol/L Potassium (3.5-5.1) mmol/L Chloride (98-107) mmol/L Carbon Dioxide (21.0-32.0) mmol/L BUN (7.0-18.0) mg/dL Creatinine (0.6-1.0) mg/dL Est Cr Clr Drug Dosing mL/min Estimated GFR (MDRD) ml/min Glucose (74-106) mg/dL Calcium (8.5-10.1) mg/dL Total Bilirubin (0.2-1.0) mg/dL AST (15-37) IU/L ALT (14-63) IU/L Alkaline Phosphatase (46-116) U/L Total Protein (6.4-8.2) g/dL Albumin (3.4-5.0) g/dL Globulin (2.6-4.0) g/dL Albumin/Globulin Ratio (0.9-1.6) HCG, Quant mIU/mL Urine Color YELLOW Urine Appearance CLEAR Urine pH 6.0 (5.0-8.0) Ur Specific [place] 1.010 (1.001-1.035) Urine Protein NEGATIVE (NEGATIVE) mg/dL Urine Glucose (UA) NEGATIVE (NEGATIVE) mg/dL Urine Ketones >=80 (NEGATIVE) mg/dL Urine Occult Blood LARGE H (NEGATIVE) Urine Nitrite NEGATIVE (NEGATIVE) Urine Bilirubin NEGATIVE (NEGATIVE) Urine Urobilinogen 0.2 (<2.0) EU/dL Ur Leukocyte Esterase SMALL H (NEGATIVE) Urine RBC 1-3 (0-2/HPF) Urine WBC 3-6 (0-5/HPF) Ur Epithelial Cells MODERATE (NONE-FEW) Urine Bacteria FEW (NEGATIVE) Random Gentamicin (2.0-10.0) ug/mL Darlene species DNA NEGATIVE (NEGATIVE) Gardnerella DNA Probe POSITIVE H (NEGATIVE) Trichomonas DNA Probe NEGATIVE (NEGATIVE) Blood Type 01/11/20 01/11/20 01/11/20 Range/Units 04:05 04:05 04:05 WBC 3.96 L (4.0-11.0) K/uL RBC 3.56 L (4.30-5.90) M/uL Hgb 10.9 L (12.0-16.0) g/dL Hct 32.9 L (36.0-46.0) % MCV 92.4 (80.0-98.0) fL MCH 30.6 (27.0-32.0) pg MCHC 33.1 (31.0-37.0) g/dL RDW Std Deviation 43.7 (28.0-62.0) fl RDW Coeff of Liz 13 (11.0-15.0) % Plt Count 173 (150-400) K/uL MPV 9.40 (7.40-12.00) fL Neut % (Auto) 81.6 H (48.0-80.0) % Lymph % (Auto) 10.6 L (16.0-40.0) % [place] % (Auto) 7.8 (0.0-15.0) % Eos % (Auto) 0.0 (0.0-7.0) % Baso % (Auto) 0.0 (0.0-1.5) % Neut # (Auto) 3.2 (1.4-5.7) K/uL Lymph # (Auto) 0.4 L (0.6-2.4) K/uL [place] # (Auto) 0.3 (0.0-0.8) K/uL Eos # (Auto) 0.0 (0.0-0.7) K/uL Baso # (Auto) 0.0 (0.0-0.1) K/uL Nucleated RBC % 0.0 /100WBC Nucleated RBCs # 0 K/uL Lactate (0.20-2.00) mmol/L Sodium 139 (136-145) mmol/L Potassium 3.5 (3.5-5.1) mmol/L Chloride 106 (98-107) mmol/L Carbon Dioxide 19.9 L (21.0-32.0) mmol/L BUN 11 (7.0-18.0) mg/dL Creatinine 0.8 (0.6-1.0) mg/dL Est Cr Clr Drug Dosing 88.79 mL/min Estimated GFR (MDRD) > 60.0 ml/min Glucose 82 (74-106) mg/dL Calcium 7.2 L (8.5-10.1) mg/dL Total Bilirubin 1.2 H (0.2-1.0) mg/dL AST 17 (15-37) IU/L ALT 21 (14-63) IU/L Alkaline Phosphatase 51 (46-116) U/L Total Protein 5.6 L (6.4-8.2) g/dL Albumin 2.8 L (3.4-5.0) g/dL Globulin 2.8 (2.6-4.0) g/dL Albumin/Globulin Ratio 1.0 (0.9-1.6) HCG, Quant mIU/mL Urine Color Urine Appearance Urine pH (5.0-8.0) Ur Specific [place] (1.001-1.035) Urine Protein (NEGATIVE) mg/dL Urine Glucose (UA) (NEGATIVE) mg/dL Urine Ketones (NEGATIVE) mg/dL Urine Occult Blood (NEGATIVE) Urine Nitrite (NEGATIVE) Urine Bilirubin (NEGATIVE) Urine Urobilinogen (<2.0) EU/dL Ur Leukocyte Esterase (NEGATIVE) Urine RBC (0-2/HPF) Urine WBC (0-5/HPF) Ur Epithelial Cells (NONE-FEW) Urine Bacteria (NEGATIVE) Random Gentamicin 1.5 L (2.0-10.0) ug/mL Darlene species DNA (NEGATIVE) Gardnerella DNA Probe (NEGATIVE) Trichomonas DNA Probe (NEGATIVE) Blood Type [place] Results Last 24 Hours: Microbiology 01/10/20 15:38 Influenza Type A Antigen Screen - Final Nasopharyngeal Swab NEGATIVE INFLUENZA A VIRUS AG REFERENCE RANGE: NEGATIVE Influenza Type B Antigen Screen - Final NEGATIVE INFLUENZA B VIRUS AG REFERENCE RANGE: NEGATIVE Med Orders - Current: Current Medications Acetaminophen (Tylenol) 650 mg PO Q4H PRN PRN Reason: Pain (Mild 1-3)/fever Last Admin: 01/11/20 11:07 Dose: 650 mg Ampicillin Sodium 1 gm/ Sodium (Chloride) 50 mls @ 100 mls/hr IV Q6H [facility] Last Admin: 01/11/20 05:09 Dose: 100 mls/hr Clindamycin Phosphate 900 mg/ (Premix) 50 mls @ 100 mls/hr IV Q8H [facility] Last Admin: 01/11/20 12:00 Dose: 100 mls/hr Gentamicin Sulfate 350 mg/ (Dextrose/Water) 108.75 mls @ 108.75 mls/hr IV Q24H [facility] Sodium Chloride (Normal Saline) 1,000 mls @ 125 mls/hr IV ASDIRECTED [facility] Last Admin: 01/11/20 09:21 Dose: 125 mls/hr Ibuprofen (Motrin) 600 mg PO Q6H PRN PRN Reason: Pain (mild 1-3) Discontinued Medications Acetaminophen (Tylenol Extra Strength) 750 mg PO ONETIME ONE Stop: 01/10/20 16:52 Last Admin: 01/10/20 17:06 Dose: 750 mg Gentamicin Sulfate (Pharmacy To Dose - Gentamicin) 1 dose .XX ASDIRECTED [facility] Sodium Chloride (Normal Saline) 1,000 mls @ 999 mls/hr IV STAT ONE Stop: 01/10/20 16:26 Last Admin: 01/10/20 15:44 Dose: 999 mls/hr Sodium Chloride (Normal Saline) 1,000 mls @ 1,000 mls/hr IV .Bolus ONE Stop: 01/10/20 17:38 Last Admin: 01/10/20 16:45 Dose: 1,000 mls/hr Ampicillin Sodium 2 gm/ Sodium (Chloride) 100 mls @ 200 mls/hr IV ONETIME ONE Stop: 01/10/20 18:34 Last Admin: 01/10/20 20:45 Dose: 200 mls/hr Clindamycin Phosphate 900 mg/ (Premix) 50 mls @ 100 mls/hr IV ONETIME ONE Stop: 01/10/20 18:35 Last Admin: 01/10/20 18:27 Dose: 100 mls/hr Gentamicin Sulfate 80 mg/ (Sodium Chloride) 102 mls @ 200 mls/hr IV ONETIME ONE Stop: 01/10/20 18:36 Last Admin: 01/10/20 18:23 Dose: Not Given Gentamicin Sulfate 320 mg/ (Sodium Chloride) 108 mls @ 211.765 mls/hr IV ONETIME ONE Stop: 01/10/20 18:37 Last Admin: 01/10/20 19:34 Dose: 211.765 mls/hr Sodium Chloride (Normal Saline) 1,000 mls @ 125 mls/hr IV .Bolus ONE Stop: 01/11/20 02:21 Last Admin: 01/11/20 01:33 Dose: 125 mls/hr Gentamicin Sulfate 340 mg/ (Dextrose/Water) 108.5 mls @ 108.5 mls/hr IV Q24H [facility] Gentamicin Sulfate 350 mg/ (Dextrose/Water) 108.75 mls @ 108.75 mls/hr IV Q24H [facility] - Exam General: Alert, Oriented Lungs: Normal Respiratory Effort Cardiovascular: Regular Rate, Regular Rhythm GI/Abdominal Exam: Normal Bowel Sounds, Soft, Non-Tender Back Exam: Normal Inspection. No: CVA Tenderness (L), CVA Tenderness (R) Extremities: Normal Inspection, Normal Range of Motion, Non-Tender, No Pedal Edema, Normal Capillary Refill Skin: Warm, Dry, Intact Neurological: No New Focal Deficit Psy/Mental Status: Alert, Normal Affect, Normal Mood Sepsis Event Note - Evaluation Sepsis Screening Result: No Definite Risk - Focused Exam Vital Signs: Vital Signs Temp Pulse Resp BP Pulse Ox 01/11/20 08:00 37.2 C 91 16 115/70 98 01/11/20 04:00 36.7 C 89 17 116/66 97 01/11/20 00:40 37.6 C 102 H 18 127/82 100 Date Exam was Performed: 01/11/20 Time Exam was Performed: 12:11 - Problem List & Annotations (1) Fever SNOMED Code(s): 969118480 Code(s): R50.9 - FEVER, UNSPECIFIED Status: Acute Current Visit: Yes - Problem List Review Problem List Initiated/Reviewed/Updated: Yes - My Orders Last 24 Hours: My Active Orders 01/10/20 20:00 Telemetry Monitoring [Cardiac Monitoring] [RC] Q8H 01/10/20 22:12 Patient Status [ADT] Routine Oxygen Therapy [RC] PRN Up ad Ethel [RC] ASDIRECTED VTE/DVT Education [RC] PER UNIT ROUTINE Vital Signs [RC] Q4H Acetaminophen [Tylenol] 650 mg PO Q4H PRN Ibuprofen [Motrin] 600 mg PO Q6H PRN Resuscitation Status Routine 01/10/20 22:14 Intake and Output [RC] QSHIFT 01/10/20 22:15 Notify Provider Vital Signs [RC] ASDIRECTED 01/10/20 22:16 Ambulate [RC] PER UNIT ROUTINE 01/10/20 Dinner Regular Diet [DIET] 01/11/20 00:00 Ampicillin 1 gm Sodium Chloride 0.9% [Normal Saline] 50 ml IV Q6H 01/11/20 02:00 Clindamycin Phosphate in D5W [Cleocin in D5W] 900 mg Premix Bag 1 bag IV Q8H 01/11/20 05:15 Sodium Chloride 0.9% [Normal Saline] 1,000 ml IV ASDIRECTED 01/11/20 19:30 Gentamicin 350 mg Dextrose 5% in Water 100 ml IV Q24H - Assessment Assessment:: Fever, low back pain - Plan Plan:: Has remained afebrile with stable VS. Labs today reveal a low white blood cell count (more of a viral picture). Will continue empiric iv antibiotics. If remains afebrile 24 hours, will transition to oral antibiotics. Patient very much would like to go home this evening if remains stable. Will send in oral antibiotics in anticipation of this--send in flagyl, which will cover the BV and doxycyline until cultures return. Patient agrees to plan of care. Would follow up quant hcg to zero and follow up in clinic in next 7-10 days, can do this via telehealth given COVID precautions.
[2020-01-11] MEDS ORDERED: DEXTROSE 5% IV SCH ×2 (18:30)
[2020-01-11] MEDS ORDERED: GENTAMICIN IV SCH ×2 (18:30)
[2020-01-11] MEDS ORDERED: Gentamicin 350 MG in Dextrose 5% in Water 100 ML IV SCH ×4 (18:30→19:30)
[2020-01-11] MEDS ORDERED: WATER IV SCH ×2 (18:30)
[2020-01-11 22:38] VITALS: BP 119/68; PULSE 80
== END 2020-01-11 22:00 | disposition home or self-care (01) ==
LOC: MW.ED 15:01 → MW.MS 18:13
PROVIDERS: ADMIT Obstetrics & Gynecology; ATTEND Obstetrics & Gynecology
DX: O03.89 Complete or unspecified spontaneous abortion with other complications (principal); R50.9 Fever, unspecified; M54.5 Low back pain; R51 Headache; N93.9 Abnormal uterine and vaginal bleeding, unspecified; F17.210 Nicotine dependence, cigarettes, uncomplicated; Z88.1 Allergy status to other antibiotic agents; Z91.02 Food additives allergy status
CPT/HCPCS: 36415; 76830; 80053; 80170; 81001; 83605; 84702; 85025; 86900; 86901; 87040; 87070; 87086; 87480; 87491; 87510; 87591; 87635; 87660; 87804; 96361; 96365; 96366; 96367; 96376; 99285; A9270; G0378; J0290; J1580; J3490; J7030; J7050; J7060; 96360; 99283; U0002

== ENCOUNTER 2020-08-25 16:11 | Emergency (ER) | payer OTHER ==
[2020-08-25] MEDS ORDERED: Diclofenac Sodium 50 MG Tab.EC PO ONE ×2 (16:52→17:07)
--- NOTE | 2020-08-25 17:20 | PCM.SN.2 ---
- Free Text/Narrative Note: 12-Lead ECG Interpretation Acquired: 5:08 PM Rhythm: Sinus rhythm Rate: 80 bpm [place]: Normal Intervals: Normal Ectopy: None RV Strain: No obvious RV strain pattern. ST Segments/T-Waves: No notable changes Acute Ischemic Changes: None apparent Interpretation: No STEMI
--- NOTE | 2020-08-25 17:41 | EDM.PDOC ---
ED HPI GENERAL MEDICAL PROBLEM - General Chief Complaint: General Stated Complaint: SICK Time Seen by Provider: 08/25/20 16:13 Source of Information: Reports: Patient History Limitations: Reports: No Limitations - History of Present Illness INITIAL COMMENTS - FREE TEXT/NARRATIVE: HISTORY AND PHYSICAL: History of present illness: Patient is a 29-year-old female who presents to the emergency room with a 2-week history of midsternal chest pain. She states she has noticed pain on both sides of her mid sternum which will fluctuate in intensity and length. States she will notice it occasionally on the left, the right, may last a few seconds or up to a few minutes. Today she felt a warmth to her upper chest going into her right shoulder. She does not notice the pain improve or get worse with physical activity or rest. No associated symptoms with this. She states she does have a history of anxiety/panic attacks although this does not feel similar. No increased stressors at home. She does have a history of peripheral neuropathy so she always has "mild numbness and tingling to her fingertips" does not notice any new neurological symptoms. Patient denies any fever, chills, headache, change in vision, syncope or near syncope. Denies any back pain, shortness of breath or cough. Denies any abdominal pain, nausea, vomiting, diarrhea, constipation or dysuria. Has not noted any blood in urine or stool. Patient has been eating and drinking appropriately. Review of systems: As per history of present illness and below otherwise all systems reviewed and negative. Past medical history: As per history of present illness and as reviewed below otherwise noncontributory. Surgical history: As per history of present illness and as reviewed below otherwise noncont ributory. Social history: See social history for further information Family history: As per history of present illness and as reviewed below otherwise noncontributory. Physical exam: General: Well developed and well nourished 29 year old female. Alert and orientated x 3. Nontoxic in appearance and in no acute distress. Vital signs are stable and have been reviewed by me. Nursing notes were reviewed. HEENT: Atraumatic, normocephalic, pupils equal and reactive bilaterally, negative for conjunctival pallor or scleral icterus, mucous membranes moist, TMs normal bilaterally, throat clear, neck supple, nontender, trachea midline. No drooling or trismus noted. No meningeal signs. No hot potato voice noted. Lungs: Clear to auscultation, breath sounds equal bilaterally, chest nontender. No breast pain/rashes/lesions or masses. Normal work of breathing, no accessory muscles used. Heart: S1S2, regular rate and rhythm without overt murmur Abdomen: Soft, nondistended, nontender. Negative for masses or hepatosplenomegaly. Negative for costovertebral tenderness. Pelvis: Stable nontender. Skin: Intact, warm, dry. No lesions or rashes noted. Hematologic: No petechiae or purpra. Mucosa appropriate color and normal nail bed color and refill. Extremities: Atraumatic, moves all extremities per self without difficulty or deficits, negative for cords or calf pain. Neurovascular unremarkable. Neuro: Awake, alert, oriented. Cranial nerves II through XII unremarkable. Cerebellum unremarkable. Motor and sensory unremarkable throughout. Exam nonfocal. Psychiatric: Mood and affect are appropriate. Normal thought process. Answering questions appropriately. Notes: Patient declines wanting to be swabbed for COVID-19, states she had a negative test on 08/14/2020. She also states she has an appointment with her primary care provider for today's complaint on 08/30/20. Chest x-ray, EKG, lab work is all within normal limits. I have talked with the patient about today's findings, in addition to providing specific details for plan of care. Reassessment at the time of disposition demonstrates that the patient is in no acute distress. The patient is stable for discharge, counseling was provided and we discussed in great detail signs and symptoms that would prompt them to return to the Emergency Department. Medication, follow up and supportive care measures were reviewed and discussed. Voices understanding and is agreeable to plan of care. Denies any further questions or concerns at this time. Diagnostics: CBC, CMP, Troponin, EKG, CXR, COVID (declined) Therapeutics: Diclofenac Prescription: None Impression: Chest pain, nonspecific Plan: 1. Today your chest x-ray, EKG, cardiac lab work and basic lab work was within normal limits. At this time is there no emergent reason for your chest pain; but I do want you to follow up with your primary care provider for further evaluation and managment. 2. Alternate Tylenol and Ibuprofen as needed for pain. 3. We encourage you to follow up with your primary care provider and/or recommended specialist in the next few days for re-evaluation and further care/management. If your symptoms should worsen, new symptoms develop or any of the signs and symptoms we discussed should arise please return to the emergency room or call 911 (if needed). Definitive disposition and diagnosis as appropriate pending reevaluation and review of above. chest Pain Score (Numeric/FACES): 6 - Related Data Allergies Allergy/AdvReac Type Severity Reaction Status Date / Time banana Allergy Swelling Verified 08/25/20 16:30 cefaclor [From Ceclor] Allergy Rash Verified 08/25/20 16:30 Home Meds: Home Meds . [No Known Home Meds] 08/25/20 [History] Past Medical History HEENT History: Reports: None, Other (See Below) Other HEENT History: wears contacts/glasses Cardiovascular History: Reports: None Respiratory History: Reports: None Other Respiratory History: PT states SOB after last Gastrointestinal History: Reports: GERD Genitourinary History: Reports: None PATTERN FINISHER History: Reports: Spontaneous Other PATTERN FINISHER History: 3 Csections Musculoskeletal History: Reports: Other (See Below) Other Musculoskeletal History: scoliosis Neurological History: Reports: None Psychiatric History: Reports: Anxiety Endocrine/Metabolic History: Reports: None Hematologic History: 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 Other Hematologic History: idiopathic thrombocytopenia as a child Immunologic History: Reports: None Other Immunologic History: Unspecified autoimmune disease Oncologic (Cancer) History: Reports: None Dermatologic History: Reports: Psoriasis - Infectious Disease History Infectious Disease History: Reports: Chicken Pox - Past Surgical History Head Surgeries/Procedures: Reports: None Cardiovascular Surgical History: Reports: None Respiratory Surgical History: Reports: None GI Surgical History: Reports: None Female Surgical History: Reports: Section Endocrine Surgical History: Reports: None Neurological Surgical History: Reports: None Musculoskeletal Surgical History: Reports: None Oncologic Surgical History: Reports: None Dermatological Surgical History: Reports: None Social & Family History - Family History Family Medical History: No Pertinent Family History - Caffeine Use Caffeine Use: Reports: Coffee, Soda - Recreational Drug Use Recreational Drug Use: No - Living Situation & Occupation 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 ED EXAM, GENERAL - Physical Exam Exam: See Below (See dictation) Course - Vital Signs Last Recorded V/S: Last Vital Signs Temp 98.2 F 08/25/20 16:31 Pulse 85 08/25/20 16:31 Resp 16 08/25/20 16:31 BP 115/76 08/25/20 16:31 Pulse Ox 96 08/25/20 16:31 - Orders/Labs/Meds Orders: Active Orders 24 hr Category Date Time Status EKG Documentation Completion [RC] STAT Care 08/25/20 16:52 Active Labs: Laboratory Tests 08/25/20 08/25/20 08/25/20 Range/Units 17:15 17:15 17:15 WBC 4.69 (4.0-11.0) K/uL RBC 4.60 (4.30-5.90) M/uL Hgb 14.3 (12.0-16.0) g/dL Hct 42.8 (36.0-46.0) % MCV 93.0 (80.0-98.0) fL MCH 31.1 (27.0-32.0) pg MCHC 33.4 (31.0-37.0) g/dL RDW Std Deviation 41.4 (28.0-62.0) fl RDW Coeff of Liz 12 (11.0-15.0) % Plt Count 265 (150-400) K/uL MPV 10.10 (7.40-12.00) fL Neut % (Auto) 45.2 L (48.0-80.0) % Lymph % (Auto) 42.9 H (16.0-40.0) % Crook % (Auto) 10.0 (0.0-15.0) % Eos % (Auto) 1.7 (0.0-7.0) % Baso % (Auto) 0.2 (0.0-1.5) % Neut # (Auto) 2.1 (1.4-5.7) K/uL Lymph # (Auto) 2.0 (0.6-2.4) K/uL Crook # (Auto) 0.5 (0.0-0.8) K/uL Eos # (Auto) 0.1 (0.0-0.7) K/uL Baso # (Auto) 0.0 (0.0-0.1) K/uL Nucleated RBC % 0.0 /100WBC Nucleated RBCs # 0 K/uL Sodium 140 (136-145) mmol/L Potassium 3.9 (3.5-5.1) mmol/L Chloride 104 (98-107) mmol/L Carbon Dioxide 28.4 (21.0-32.0) mmol/L BUN 21 H (7.0-18.0) mg/dL Creatinine 1.0 (0.6-1.0) mg/dL Est Cr Clr Drug Dosing 71.03 mL/min Estimated GFR (MDRD) > 60.0 ml/min Glucose 106 (74-106) mg/dL Calcium 9.5 (8.5-10.1) mg/dL Total Bilirubin 0.7 (0.2-1.0) mg/dL AST 15 (15-37) IU/L ALT 25 (14-63) IU/L Alkaline Phosphatase 49 (46-116) U/L Troponin I < 0.050 (0.000-0.056) ng/mL Total Protein 7.3 (6.4-8.2) g/dL Albumin 4.0 (3.4-5.0) g/dL Globulin 3.3 (2.6-4.0) g/dL Albumin/Globulin Ratio 1.2 (0.9-1.6) TSH 3rd Generation 1.46 (0.36-3.74) uIU/mL Meds: Medications Discontinued Medications Generic Name Dose Route Start Last Admin Trade Name Freq PRN Reason Stop Dose Admin Diclofenac Sodium 50 mg 08/25/20 16:52 08/25/20 17:25 Voltaren PO 08/25/20 16:53 Not Given ONETIME ONE Diclofenac Sodium 50 mg 08/25/20 17:07 08/25/20 17:25 Voltaren PO 08/25/20 17:08 50 mg ONETIME ONE Administration Departure - Departure Time of Disposition: 18:15 Disposition: Home, Self-Care 01 Clinical Impression: Nonspecific chest pain - Discharge Information Instructions: Nonspecific Chest Pain, Adult, [id number] Referrals: PCP,None [Primary Care Provider] - Forms: ED Department Discharge Additional Instructions: The following information is given to patients seen in the emergency department who are being discharged to home. This information is to outline your options for follow-up care. We provide all patients seen in our emergency department with a follow-up referral. The need for follow-up, as well as the timing and circumstances, are variable depending upon the specifics of your emergency department visit. If you don't have a primary care physician on staff, we will provide you with a referral. We always advise you to contact your personal physician following an emergency department visit to inform them of the circumstance of the visit and for follow-up with them and/or the need for any referrals to a consulting specialist. The emergency department will also refer you to a specialist when appropriate. This referral assures that you have the opportunity for follow-up care with a specialist. All of these measure are taken in an effort to provide you with optimal care, which includes your follow-up. Under all circumstances we always encourage you to contact your private physician who remains a resource for coordinating your care. When calling for follow-up care, please make the office aware that this follow-up is from your recent emergency room visit. If for any reason you are refused follow-up, please contact the [facility] Emergency Department at and asked to speak to the emergency department charge nurse. [facility] [address] [place] [address] [place] [address] Thank you for choosing the [facility] emergency department in [place] for your medical needs today. It was a pleasure caring for you. Today you were seen in the emergency department for chest pain. 1. Today your chest x-ray, EKG, thyroid, cardiac lab work and basic lab work was within normal limits. At this time is there no emergent reason for your chest pain; but I do want you to follow up with your primary care provider for further evaluation and management. 2. Alternate Tylenol and Ibuprofen as needed for pain. 3. We encourage you to follow up with your primary care provider and/or recommended specialist in the next few days for re-evaluation and further care/management. If your symptoms should worsen, new symptoms develop or any of the signs and symptoms we discussed should arise please return to the emergency room or call 911 (if needed). Sepsis Event Note (ED) - Evaluation Sepsis Screening Result: No Definite Risk - Focused Exam Vital Signs: Vital Signs Temp Pulse Resp BP Pulse Ox 08/25/20 16:31 98.2 F 85 16 115/76 96 - My Orders Last 24 Hours: My Active Orders 08/25/20 16:52 EKG Documentation Completion [RC] STAT - Assessment/Plan Last 24 Hours: My Active Orders 08/25/20 16:52 EKG Documentation Completion [RC] STAT
[2020-08-25 17:59] LABS: BLOOD UREA NITROGEN,BUN 21 mg/dL (7.0-18.0); CARBON DIOXIDE,CO2 28.4 mmol/L (21.0-32.0); CHLORIDE,CL 104 mmol/L (98-107); GLUCOSE RANDOM 106 mg/dL (74-106); POTASSIUM,K 3.9 mmol/L (3.5-5.1); SODIUM,NA 140 mmol/L (136-145)
--- NOTE | 2020-08-25 17:59 | CR ---
Indication: Chest pain Comparison: None available. Technique: Single AP view chest Findings: There is no focal consolidation, effusion, or pneumothorax. The cardiomediastinal silhouette is within normal limits. The bony thorax is grossly intact. Impression: No acute cardiopulmonary abnormality. Dictated by Gaurav Parks MD @ Aug 25 2020 5:56PM Signed by Dr. Gaurav Parks @ Aug 25 2020 5:57PM
[2020-08-25 18:42] VITALS: BP 119/80; PULSE 81
== END 2020-08-25 18:35 | disposition home or self-care (01) ==
LOC: MW.ED 16:11
DX: R07.9 Chest pain, unspecified (principal); M41.9 Scoliosis, unspecified; G62.9 Polyneuropathy, unspecified; Z88.1 Allergy status to other antibiotic agents; Z91.018 Allergy to other foods
CPT/HCPCS: 36415; 71045; 80053; 84443; 84484; 85025; 93005; 99285; A9270; 93010; 99283

== ENCOUNTER 2023-01-03 10:44 | Inpatient (IN) | payer OTHER ==
[2023-01-03] MEDS ORDERED: Citric Acid/Sodium Citrate Solution 30 ML Cup PO ONE (10:46)
[2023-01-03] MEDS ORDERED: Sodium Chloride 0.9% 10 ML Syringe FLUSH PRN (10:46)
[2023-01-03] MEDS ORDERED: Sodium Chloride 0.9% 2.5 ML Syringe FLUSH PRN (10:46)
[2023-01-03] MEDS ORDERED: Sodium Chloride 0.9% 20 ML SDV IV PRN (10:46)
[2023-01-03] MEDS ORDERED: Lactated Ringers 1,000 ML IV SCH ×2 (11:00→13:30)
[2023-01-03] MEDS ORDERED: Oxytocin/0.9 % Sodium Chloride 30 UNIT/500 ML BAG IV SCH ×2 (11:00→13:30)
[2023-01-03 11:50] LABS: BLOOD UREA NITROGEN,BUN 11 mg/dL (7.0-18.0); CARBON DIOXIDE,CO2 20.7 mmol/L (21.0-32.0); CHLORIDE,CL 104 mmol/L (98-107); GLUCOSE RANDOM 80 mg/dL (74-106); POTASSIUM,K 4.1 mmol/L (3.5-5.1); SODIUM,NA 136 mmol/L (136-145)
[2023-01-03] MEDS ORDERED: ceFAZolin 1 GM Vial ONE (11:51)
[2023-01-03] MEDS ORDERED: Ketorolac 30 MG/ML SDV ONE (11:51)
[2023-01-03] MEDS ORDERED: Oxytocin 10 Units/1 ML SDV ONE (11:51)
[2023-01-03] MEDS ORDERED: Morphine PF 10 MG/10 ML SDV ONE (11:51)
[2023-01-03] MEDS ORDERED: fentaNYL 100 MCG/2 ML SDV ONE (11:51)
[2023-01-03] MEDS ORDERED: Ondansetron 4 MG/2 ML SDV ONE (11:51)
[2023-01-03] MEDS ORDERED: Dexamethasone 4 MG/ML 5 ML MDV ONE (11:51)
[2023-01-03] MEDS ORDERED: Ropivacaine 0.5% 5 MG/ML 30 ML SDV ONE (11:51)
[2023-01-03 11:57] LABS: ESTIMATED GFR 100 mL/min (>60)
[2023-01-03] MEDS ORDERED: ceFAZolin 2 GM Vial ONE (12:45)
[2023-01-03] MEDS ORDERED: Tranexamic Acid 1,000 MG/10 ML Vial ONE (12:53)
[2023-01-03] MEDS ORDERED: Misoprostol 200 MCG Tab RECTAL PRN (13:23)
[2023-01-03] MEDS ORDERED: Tranexamic Acid 1,000 MG in Sodium Chloride 0.9% 100 ML IV PRN (13:23)
[2023-01-03] MEDS ORDERED: Bisacodyl 10 MG Supp RECTAL PRN (13:23)
[2023-01-03] MEDS ORDERED: Oxytocin 10 Units/1 ML SDV IM PRN (13:23)
[2023-01-03] MEDS ORDERED: Ondansetron 4 MG/2 ML SDV IVPUSH PRN ×3 (13:23→14:10)
[2023-01-03] MEDS ORDERED: diphenhydrAMINE 50 MG/ML SDV IVPUSH PRN ×2 (13:23→14:04)
[2023-01-03] MEDS ORDERED: Methylergonovine 0.2 MG/1 ML Amp IM PRN (13:23)
[2023-01-03] MEDS ORDERED: Acetaminophen/oxyCODONE 325-5 MG Tab PO PRN (13:23)
[2023-01-03] MEDS ORDERED: Lanolin 100% Cream 7 GM Tube TOP PRN (13:23)
[2023-01-03] MEDS ORDERED: Ketorolac 30 MG/ML SDV IVPUSH SCH (13:30)
[2023-01-03] MEDS ORDERED: Albuterol 0.083% 2.5 MG/3 ML Neb Soln NEB PRN (14:04)
[2023-01-03] MEDS ORDERED: fentaNYL 50 MCG/ML SDV IVPUSH PRN (14:07)
[2023-01-03] MEDS ORDERED: HYDROmorphone 1 MG/ML Syringe IVPUSH PRN (14:08)
[2023-01-03] MEDS ORDERED: fentaNYL 100 MCG/2 ML SDV IVPUSH PRN (14:08)
[2023-01-03] MEDS ORDERED: Morphine 2 MG/ML SYRINGE IVPUSH PRN (14:09)
[2023-01-03] MEDS ORDERED: Naloxone 0.4 MG/ML SDV IVPUSH PRN (14:09)
[2023-01-03] MEDS ORDERED: Metoclopramide 10 MG/2 ML SDV IVPUSH PRN (14:09)
[2023-01-03] MEDS: Ketorolac 30 MG/ML SDV IVPUSH SCH (18:37)
[2023-01-03] MEDS: Docusate Sodium 100 MG Cap PO SCH (21:22)
[2023-01-04] MEDS: Ketorolac 30 MG/ML SDV IVPUSH SCH ×4 (00:55→19:43)
[2023-01-04] MEDS: Docusate Sodium 100 MG Cap PO SCH ×2 (09:23→21:35)
[2023-01-04] MEDS: Ibuprofen 800 MG Tab PO PRN (21:35)
[2023-01-04] MEDS: Acetaminophen/oxyCODONE 325-5 MG Tab PO PRN (21:36)
[2023-01-05] MEDS: Acetaminophen/oxyCODONE 325-5 MG Tab PO PRN ×2 (04:09→08:27)
[2023-01-05] MEDS: Ibuprofen 800 MG Tab PO PRN (08:28)
[2023-01-05] MEDS: Docusate Sodium 100 MG Cap PO SCH (08:28)
[2023-01-05 09:27] VITALS: BP 133/84; PULSE 90
== END 2023-01-05 12:32 | disposition home or self-care (01) | DRG 788 ==
LOC: MW.OBCHECK 10:44 → MW.OB 10:46 → OBSVTOIN 10:47 → MW.OB 17:45
PROVIDERS: ADMIT Obstetrics & Gynecology; ATTEND Obstetrics & Gynecology
PROC: 10D00Z1 Extraction of Products of Conception, Low, Open Approach (ICD-10-PCS; principal; 2023-01-03)
DX: O34.211 Maternal care for low transverse scar from previous cesarean delivery (principal); Z37.0 Single live birth; O14.94 Unspecified pre-eclampsia, complicating childbirth; Z3A.38 38 weeks gestation of pregnancy
CPT/HCPCS: 36415; 80053; 82803; 82947; 84550; 85014; 85018; 85027; 86592; 86593; 86780; 86850; 86900; 86901; A9270-GY; J0690; J1100; J1885; J2274; J2405; J2590; J2795; J3010; J3490; J7120

== ENCOUNTER 2023-01-08 12:07 | Inpatient (IN) | payer OTHER ==
[2023-01-08 13:32] LABS: BLOOD UREA NITROGEN,BUN 32 mg/dL (7.0-18.0); CARBON DIOXIDE,CO2 23.2 mmol/L (21.0-32.0); CHLORIDE,CL 108 mmol/L (98-107); GLUCOSE RANDOM 67 mg/dL (74-106); POTASSIUM,K 4.3 mmol/L (3.5-5.1); SODIUM,NA 141 mmol/L (136-145)
[2023-01-08 13:34] LABS: ESTIMATED GFR 23 mL/min (>60)
[2023-01-08] MEDS ORDERED: Furosemide 40 MG/4 ML VIAL IVPUSH ONE (13:54)
[2023-01-08] MEDS ORDERED: Sodium Chloride 0.9% 2.5 ML Syringe FLUSH PRN (15:56)
[2023-01-08] MEDS ORDERED: Calcium Gluconate 10% 1 GM/10 ML SDV IV PRN (15:56)
[2023-01-08] MEDS ORDERED: Sodium Chloride 0.9% 20 ML SDV IV PRN (15:56)
[2023-01-08] MEDS ORDERED: Magnesium Sulfate/Water 4 GM in Premix Bag 1 BAG IV ONE (15:56)
[2023-01-08] MEDS ORDERED: Sodium Chloride 0.9% 10 ML Syringe FLUSH PRN (15:56)
[2023-01-08] MEDS ORDERED: Magnesium Sulfate/Water 20 GM/500 ML BAG IV SCH (15:59)
[2023-01-08] MEDS ORDERED: Acetaminophen 325 MG Tab PO PRN (17:08)
[2023-01-08] MEDS ORDERED: Furosemide 20 MG/2 ML VIAL IVPUSH SCH (17:15)
[2023-01-08] MEDS ORDERED: Enoxaparin 40 MG/0.4 ML Syringe SUBCUT SCH (17:15)
[2023-01-08] MEDS ORDERED: Labetalol 100 MG/20 ML MDV IVPUSH PRN (18:05)
[2023-01-08] MEDS ORDERED: Enoxaparin 30 MG/0.3 ML Syringe SUBCUT SCH (18:45)
[2023-01-09] MEDS ORDERED: Furosemide 40 MG/4 ML VIAL IVPUSH SCH (00:30)
[2023-01-09 06:23] LABS: CARBON DIOXIDE,CO2 24.5 mmol/L (21.0-32.0)
[2023-01-09] MEDS ORDERED: Furosemide 20 MG/2 ML VIAL IVPUSH ONE (06:30)
[2023-01-09 19:29] LABS: CARBON DIOXIDE,CO2 27.5 mmol/L (21.0-32.0); POTASSIUM,K 3.7 mmol/L (3.5-5.1)
[2023-01-10] MEDS ORDERED: Enoxaparin 40 MG/0.4 ML Syringe ONE ×2 (00:14→00:48)
[2023-01-10 08:32] LABS: CARBON DIOXIDE,CO2 26.1 mmol/L (21.0-32.0); POTASSIUM,K 3.5 mmol/L (3.5-5.1)
[2023-01-10 08:39] VITALS: BP 120/92; PULSE 80
== END 2023-01-10 11:03 | disposition home or self-care (01) | DRG 776 ==
LOC: MW.ED 12:07 → MW.OB 14:01
PROVIDERS: ADMIT Obstetrics & Gynecology; ATTEND Obstetrics & Gynecology
DX: O14.15 Severe pre-eclampsia, complicating the puerperium (principal); I42.9 Cardiomyopathy, unspecified; O90.4 Postpartum acute kidney failure; O99.43 Diseases of the circulatory system complicating the puerperium; Z88.8 Allergy status to other drugs, medicaments and biological substances
CPT/HCPCS: 36415; 71045; 71045-26; 76770; 76770-26; 80048; 80053; 81003; 83735; 83880; 85025; 86850; 86900; 86901; 93970; 93970-26; 96374; 99285-25; J1650; J1940; J3475

== ENCOUNTER 2025-02-12 05:13 | Inpatient (IN) | payer OTHER ==
[2025-02-12] MEDS ORDERED: Sodium Chloride 0.9% 2.5 ML Syringe FLUSH PRN (05:45)
[2025-02-12] MEDS ORDERED: Sodium Chloride 0.9% 10 ML Syringe FLUSH PRN (05:45)
[2025-02-12] MEDS ORDERED: Clindamycin Phosphate in D5W 900 MG in Premix Bag 50 BAG IV ONE (05:45)
[2025-02-12] MEDS ORDERED: Misoprostol 200 MCG Tab RECTAL PRN ×2 (05:45→09:03)
[2025-02-12] MEDS ORDERED: Ondansetron 4 MG/2 ML SDV IVPUSH PRN ×4 (05:45→09:03)
[2025-02-12] MEDS ORDERED: Oxytocin/0.9 % Sodium Chloride 30 UNIT/500 ML BAG IV SCH (05:45)
[2025-02-12] MEDS ORDERED: Oxytocin 10 Units/1 ML SDV IM PRN ×2 (05:45→09:03)
[2025-02-12] MEDS ORDERED: Methylergonovine 0.2 MG Tab PO PRN (05:45)
[2025-02-12] MEDS ORDERED: Sodium Chloride 0.9% 20 ML SDV IV PRN (05:45)
[2025-02-12] MEDS ORDERED: Carboprost Tromethamine 250 MCG/1 mL Vial IM PRN (05:45)
[2025-02-12 06:02] LABS: HEMATOCRIT 34.1 % (37.0-47.0); HEMOGLOBIN 11.7 g/dL (12.0-16.0); MEAN CORPUSCULAR HEMOGLOBIN 31.4 pg (28.0-32.0); MEAN CORPUSCULAR HGB CONC 34.3 g/dL (32.0-36.0); MEAN CORPUSCULAR VOLUME 91.4 fL (83.0-99.0); MEAN PLATELET VOLUME 11.6 fL (9.4-12.3); PLATELET COUNT,PLT 152 K/uL (150-400); RED BLOOD CELL COUNT 3.73 M/uL (4.10-5.30); WHITE BLOOD CELL COUNT,WBC 7.75 K/uL (3.9-11.3)
[2025-02-12] MEDS: Lactated Ringers 1,000 ML IV SCH (07:06)
[2025-02-12] MEDS ORDERED: fentaNYL 100 MCG/2 ML SDV ONE (07:07)
[2025-02-12] MEDS ORDERED: Morphine PF 10 MG/10 ML SDV ONE (07:08)
[2025-02-12] MEDS ORDERED: dexmedeTOMIDine HCl 200 MCG/2 ML SDV ONE (07:08)
[2025-02-12] MEDS ORDERED: Ropivacaine 0.5% 5 MG/ML 30 ML SDV ONE ×2 (07:10→08:44)
[2025-02-12] MEDS ORDERED: Sodium Chloride 0.9% 20 ML ONE (07:11)
[2025-02-12] MEDS ORDERED: Ondansetron 4 MG/2 ML SDV ONE (07:13)
[2025-02-12] MEDS ORDERED: Phenylephrine 1% 10 MG/ML SDV ONE (07:16)
[2025-02-12] MEDS ORDERED: ePHEDrine 50 MG/ML SDV ONE (07:16)
[2025-02-12] MEDS ORDERED: droPERidol 5 MG/2 ML SDV ONE (07:21)
[2025-02-12] MEDS ORDERED: Phenylephrine HCl In 0.9% NaCl 1 MG/10 ML Syringe IVPUSH PRN (07:48)
[2025-02-12] MEDS ORDERED: Naloxone 0.4 MG/ML SDV IVPUSH PRN ×2 (07:48→09:03)
[2025-02-12] MEDS ORDERED: Metoclopramide 10 MG/2 ML SDV IVPUSH PRN (07:48)
[2025-02-12] MEDS ORDERED: Albuterol 0.083% 2.5 MG/3 ML Neb Soln NEB PRN (07:48)
[2025-02-12] MEDS ORDERED: HYDROmorphone 1 MG/ML Syringe IVPUSH PRN (07:48)
[2025-02-12] MEDS ORDERED: Nalbuphine 10 MG/1 ML Vial IVPUSH PRN (07:48)
[2025-02-12] MEDS ORDERED: fentaNYL 100 MCG/2 ML SDV IVPUSH PRN (07:48)
[2025-02-12] MEDS ORDERED: Acetaminophen/oxyCODONE 325-5 MG Tab PO PRN ×3 (07:48→09:03)
[2025-02-12] MEDS ORDERED: Morphine 2 MG/ML SYRINGE IVPUSH PRN (07:48)
[2025-02-12] MEDS ORDERED: fentaNYL 50 MCG/ML SDV IVPUSH PRN (07:48)
[2025-02-12] MEDS ORDERED: diphenhydrAMINE 50 MG/ML SDV IVPUSH PRN ×2 (07:48→09:03)
[2025-02-12] MEDS ORDERED: Oxytocin 10 Units/1 ML SDV ONE ×5 (07:49→08:34)
[2025-02-12] MEDS ORDERED: Calcium Chloride 10% 1 GM/10 ML Syringe ONE (07:58)
[2025-02-12] MEDS ORDERED: Gentamicin Pediatric 10 MG/ML 2 ML SDV IV ONE (08:00)
[2025-02-12] MEDS ORDERED: Methylergonovine 0.2 MG/1 ML Amp IM PRN (09:03)
[2025-02-12] MEDS ORDERED: Ibuprofen 800 MG Tab PO PRN (09:03)
[2025-02-12] MEDS ORDERED: Bisacodyl 10 MG Supp RECTAL PRN (09:03)
[2025-02-12] MEDS ORDERED: Lanolin 100% Cream 7 GM Tube TOP PRN (09:03)
[2025-02-12] MEDS ORDERED: Ketorolac 30 MG/ML SDV IVPUSH SCH (09:15)
[2025-02-12] MEDS ORDERED: Lactated Ringers 1,000 ML IV SCH (09:15)
[2025-02-12] MEDS: Citric Acid/Sodium Citrate Solution 30 ML Cup PO ONE (12:31)
[2025-02-12] MEDS: Clindamycin Phosphate in D5W 900 MG in Premix Bag 1 BAG IV ONE (12:32)
[2025-02-12] MEDS: GENTAMICIN IV ONE (12:32)
[2025-02-12] MEDS: SODIUM CHLORIDE 0.9% IV ONE (12:32)
[2025-02-12 13:16] LABS: PH,UMBILICAL ARTERIAL 7.29 (7.18-7.38); PH,UMBILICAL VENOUS 7.31 (7.25-7.45)
[2025-02-12] MEDS: Ketorolac 30 MG/ML SDV IVPUSH SCH (13:59)
[2025-02-12] MEDS: Docusate Sodium 100 MG Cap PO SCH (21:41)
[2025-02-13 06:31] LABS: HEMATOCRIT 28.4 % (37.0-47.0); HEMOGLOBIN 9.8 g/dL (12.0-16.0)
[2025-02-13] MEDS: Prenatal Multivitamin with Calcium/Folic Acid/Iron Tab PO SCH (08:33)
[2025-02-13] MEDS: Ascorbic Acid 500 MG Tab PO SCH (08:33)
[2025-02-13] MEDS: Ferrous Sulfate 325 MG Tab PO SCH (08:33)
[2025-02-13 09:59] VITALS: BP 118/76; PULSE 74
== END 2025-02-13 10:16 | disposition home or self-care (01) | DRG 787 ==
LOC: MW.OB 05:13
PROVIDERS: ADMIT Obstetrics & Gynecology; ATTEND Obstetrics & Gynecology
PROC: 10D00Z1 Extraction of Products of Conception, Low, Open Approach (ICD-10-PCS; principal; 2025-02-12 08:00)
DX: O34.211 Maternal care for low transverse scar from previous cesarean delivery (principal); O98.52 Other viral diseases complicating childbirth; O99.214 Obesity complicating childbirth; Z3A.37 37 weeks gestation of pregnancy; Z37.0 Single live birth; Z87.891 Personal history of nicotine dependence; Z79.899 Other long term (current) drug therapy
CPT/HCPCS: 36415; 59025; 82803; 85014; 85018; 85027; 86592; 86850; 86900; 86901; A9270-GY; J1580; J1790; J1885; J2274; J2371; J2405; J2590; J2795; J3010; J3490; J7120